=== PATIENT | female | born 1960 | race Caucasian/White ===

== ENCOUNTER 2023-01-13 09:29 | Observation (INO) | payer OTHER, SELFPAY ==
--- NOTE | ~2023-01-13 | CT_ITS ---
EXAMINATION: CT brain wo con DATE: 01/13/2023 11:36 INDICATION: Confusion TECHNIQUE: Computed tomography (CT) of the head was performed without intravenous contrast. Sagittal and coronal reconstructions were performed. The mA was adjusted according to patient size. Iterative reconstruction technique was employed. The dose-length product was 681.00 mGy-cm. COMPARISON: None FINDINGS: No acute intracranial hemorrhage, acute infarction or abnormal extra axial fluid collection. There is very mild scattered white matter hypoattenuation consistent with chronic small vessel ischemic disea se. Symmetric prominence of the sulci and subarachnoid spaces overlying the convexities consistent wi th mild age-appropriate diffuse cerebral volume loss. Ventricles are normal and symmetric. No mass/ma ss effect. The orbits, paranasal sinuses and mastoid air cells are normal. IMPRESSION: 1. Normal aging brain. No acute intracranial process. Reviewed, dictated and finalized at location A.
--- NOTE | ~2023-01-13 | XR_ITS ---
XR chest 1V portable DATE: 01/13/2023 10:17 INDICATION: Shortness of breath TECHNIQUE: Portable AP chest on 01/13/2023 at 1004 hours COMPARISON: None FINDINGS: There is mild to moderate elevation of the right diaphragm and discoid atelectasis or scarr ing at the right lung base. The lungs otherwise appear clear. No pleural effusion or pulmonary vascul ar congestion or pneumothorax is detected. There are radiopaque sutures of the left lung. Normal heart size. No hilar or mediastinal enlargement. IMPRESSION: Postoperative change of left lung Mild to moderate right diaphragmatic elevation and discoid atelectasis or scarring at the right lung base Reviewed, dictated and finalized at location L. IMPRESSION: Postoperative change of left lung Mild to moderate right diaphragmatic elevation and discoid atelectasis or scarr ing at the right lung base
--- NOTE | ~2023-01-13 | US_ITS ---
EXAMINATION: US renal BI DATE: 01/14/2023 09:31 INDICATION: Renal failure TECHNIQUE: Multiple ultrasound grayscale images of the kidneys were obtained. COMPARISON: None. FINDINGS: The right kidney measures 9.8 x 4.2 x 4.2 cm. The left kidney measures 13.0 x 4.4 x 5.0 cm. The kidne ys demonstrate normal echogenicity. There is twinkle artifact arising from a calyx at the lower pole of the left kidney suggesting the presence of a small renal stone. There is no hydronephrosis in eith er kidney. The bladder is normal. IMPRESSION: 1. Focus of twinkle artifact at a lower pole calyx of the left kidney suggesting the presence of a r enal stone. Otherwise normal kidneys without hydronephrosis. Reviewed, dictated and finalized at location A. IMPRESSION: 1. Focus of twinkle artifact at a lower pole calyx of the left kidney suggesti ng the presence of a renal stone. Otherwise normal kidneys without hydronephros is.
[2023-01-13 09:40] VITALS: BP 126/70; PULSE 86; RESP 18; TEMP 36.3; O2SAT 99
--- NOTE | 2023-01-13 09:49 | ECG_ITS ---
Measurements Intervals [place] Rate: 82 P: 29 CT: 155 QRS: 13 QRSD: 83 T: 49 QT: 378 QTc: 443 Interpretive Statements SINUS RHYTHM BORDERLINE R WAVE PROGRESSION, ANTERIOR LEADS BORDERLINE ST-T WAVE ABNORMALITY- DIFFUSE LEADS BASELINE ARTIFACT- I, II, III, AVR, AVL, AVF, V1-V6 BORDERLINE ECG NO PREVIOUS ECG AVAILABLE FOR COMPARISON Electronically Signed On 01-13-2023 12:08:55 CDT by Vincent Maurice D.O.
[2023-01-13 10:54] VITALS: BP 123/63; PULSE 80; PULSE 89; RESP 16; O2SAT 100
[2023-01-13 10:59] LABS: Basophils Absolute Auto 0.1 K/mm3 (0.0-0.1); Basophils Percent Auto 0.7 % (0.2-1.2); Eosinophils Absolute Auto 0.3 K/mm3 (0-0.3); Hematocrit 47.2 % (37.0-47.0); Hemoglobin 14.1 g/dL (12.0-15.0); Immature Granulocyte Absolute 0.06 K/mm3 (0.00-0.031); Immature Granulocyte Percent A 0.5 % (0-0.5); Immature Platelet Fraction Pct 11.6 % (0.9-11.2); Mean Corpuscular HGB Conc 29.9 g/dl (32-36); Mean Corpuscular Hemoglobin 25.3 pg (26-34); Mean Corpuscular Volume 84.7 fl (80-100); Mean Platelet Volume 12.1 fl (7.4-10.4); Monocytes Absolute Auto 1.1 K/mm3 (0.1-0.6); Monocytes Percent Auto 8.1 % (2.6-8.5); Neutrophils Absolute Auto 9.2 K/mm3 (1.3-6.7); Neutrophils Percent Auto 69.7 % (45.5-73.1); Platelet Count Result 301 k/mm3 (150-375); Red Blood Count 5.57 M/mm3 (4.2-5.4); Red Cell Distribution Width 21.2 % (11.5-14.5); White Blood Count 13.2 K/mm3 (4.5-10.0)
--- NOTE | 2023-01-13 11:01 | ED.GENADULT ---
HPI - General Adult General Chief complaint: Altered Mental Status Stated complaint: ams Time Seen by Provider: 01/13/23 09:46 History of Present Illness HPI narrative: Angela Peterson is a 62 y/o female who presents from a NH. She states she was sent here because the staff could not get her to wake up this morning. Per report by the time EMS arrived pt was able to wake up. Patient reports that she has felt well, she feels back to her normal self at this time but does feel a little tired. She denies any recent fever/chills/chest pain/shortness of breath/ abdominal pain. She states that she has been eating and drinking well no nausea/vomiting. Denies changes with urination or bowels. Related Data Home Medications Medication Instructions Recorded Confirmed bisacodyl 10 mg rectal suppository 10 mg RECTAL DAILY PRN Constipation 01/13/23 01/13/23 ergocalciferol (vitamin D2) 1,250 50,000 unit PO WEEKLY 01/13/23 01/13/23 mcg (50,000 unit) capsule fluticasone propionate 50 1 spray intranasal DAILY 01/13/23 01/13/23 mcg/actuation nasal spray,suspension hydroxyzine HCl 10 mg tablet 10 mg PO BID 01/13/23 01/13/23 magnesium citrate 300 ml PO DAILY PRN Constipation 01/13/23 01/13/23 magnesium hydroxide 400 mg/5 mL 30 ml PO HS PRN Constipation 01/13/23 01/13/23 oral suspension (Milk of Magnesia) melatonin 3 mg tablet 3 mg PO HS 01/13/23 01/13/23 mirtazapine 15 mg tablet 15 mg PO BID 01/13/23 01/13/23 multivit with minerals-iron 18 1 tablet PO DAILY 01/13/23 01/13/23 mg-folic ac 400 mcg-vit K 25 mcg tablet (Adults Multivitamin) naloxone 4 mg/actuation nasal spray 4 mg intranasal Q5M PRN Opioid 01/13/23 01/13/23 Overdose olanzapine 10 mg tablet 10 mg PO DAILY 01/13/23 01/13/23 ondansetron HCl 8 mg tablet 8 mg PO Q8H PRN Nausea 01/13/23 01/13/23 oxybutynin chloride 5 mg 5 mg PO DAILY 01/13/23 01/13/23 tablet,extended release 24 hr pregabalin 150 mg capsule (Lyrica) 150 mg PO TID 01/13/23 01/13/23 sennosides 8.6 mg-docusate sodium 2 tab-cap PO Q24H PRN Constipation 01/13/23 01/13/23 50 mg tablet (Senna with Docusate Sodium) sodium chloride 0.65 % nasal spray 2 spray intranasal Q12H PRN Nasal 01/13/23 01/13/23 aerosol (Saline Mist) Congestion sodium phosphates 19 gram-7 118 ml RECTAL DAILY PRN 01/13/23 01/13/23 gram/118 mL enema (Fleet Enema) Constipation sulfamethoxazole 800 1 tablet PO Q12H 01/13/23 01/13/23 mg-trimethoprim 160 mg tablet (Bactrim DS) topiramate 50 mg capsule 50 mg PO Q24H PRN Migraines 01/13/23 01/13/23 sprinkle,extended release 24 hr tramadol 50 mg tablet 50 mg PO QID 01/13/23 01/13/23 Allergies Allergy/AdvReac Type Severity Reaction Status Date / Time sumatriptan Allergy Unknown Verified 01/13/23 15:55 peach AdvReac Anaphylaxis Verified 01/13/23 15:55 Review of Systems Review of Systems: CONSTITUTIONAL: Denies fever, chills, or sweats. EYES: Denies visual changes, redness, or discharge. ENT: Denies rhinorrhea, congestion, sore throat, or otalgia. CARDIOVASCULAR: Denies chest pain, palpitations, or edema. RESPIRATORY: Denies cough or dyspnea. GASTROINTESTINAL: Denies abdominal pain, nausea, vomiting, or diarrhea. GENITOURINARY: Denies dysuria or hematuria. SKIN: Denies rash or itching. MUSCULOSKELETAL: Denies back pain, joint pain, or myalgia. NEUROLOGIC: Denies headache, numbness, dizziness, or weakness. Reports staff could not wake her up this AM but now feels her normal self. PSYCHIATRIC: Denies anxiety or depression. [facility] Past Medical History Medical History (Updated 01/13/23 @ 19:42 by Nini Razo APRN) Deep venous thrombosis Depression with anxiety Family History Family History (Updated 01/13/23 @ 16:11 by Annamaria Dash RN) Mother Diabetes mellitus Heart attack Social History Social History (Updated 01/13/23 @ 15:52 by Rose Munoz PA-C) Social History: Surrogate medical decision maker: Code status: Full code. Smoking packs per day: 0.5
--- NOTE | 2023-01-13 11:05 | PC.NURSE ---
Report given to GRAEME Up
[2023-01-13 11:06] LABS: Prothrombin Time 13.4 Seconds (11.1-14.7)
[2023-01-13 11:08] LABS: Lactic Acid Reflex 1.8 mmol/L (0.7-2.0)
[2023-01-13 11:09] LABS: Alanine Aminotransferase 35 U/L (6-35); Albumin Level 4.8 g/dL (3.5-5.1); Alkaline Phosphatase 155 U/L (38-126); Anion Gap 13 mmol/L (8-16); Aspartate Amino Transferase 29 U/L (14-36); Bilirubin,Total 0.5 mg/dL (0.2-1.3); Blood Urea Nitrogen 20 mg/dL (7-17); Calcium 9.8 mg/dL (8.4-10.2); Carbon Dioxide 24 mmol/L (22-30); Chloride 107 mmol/L (98-107); Estimated CRCL calculation 39 ml/min; Estimated Glomerular Filt Rate 38; Glucose 111 mg/dL (65-110); Potassium 3.5 mmol/L (3.4-5.0); Sodium 144 mmol/L (137-145)
[2023-01-13 11:13] LABS: Glucose Point of Care 111 mg/dl (65-105)
[2023-01-13 11:15] LABS: Anisocytosis 1+ (NORMAL); Large Platelets Present; Platelet Estimate Adequate (Adequate); Schistocytes None Seen (NORMAL)
[2023-01-13 11:20] LABS: Troponin I < 0.012 ng/mL (0.000-0.034)
[2023-01-13 11:53] LABS: Add Urine Microscopic? YES; Appearance Urine Turbid (Clear); Bacteria Urine 4+ /hpf; Bilirubin Urine Negative (Negative); Blood Urine Trace (Negative); Color Urine Dark Yellow (Yellow); Glucose Urine UA Negative (Negative); Ketones Urine Negative (Negative); Leukocyte Esterase Ur 2+ LEU/UL (Negative); Need Manual Microscopic Reviewed; Nitrate Urine Positive (Negative); Protein Urine 2+ mg/dL (Negative); RBC Urine 21-50 /hpf (0-2); Squamous Epithelial Cell Urine Few /hpf (Few); Triple Phosphate Crystal Urine Present /hpf; WBC Urine 21-50 /hpf
[2023-01-13] MEDS: SODIUM CHLORIDE 0.9% IV 1,000 ML 999 ML IV CONT (12:35)
--- NOTE | 2023-01-13 13:20 | PC.NURSE ---
report called to alex at [facility]
--- NOTE | 2023-01-13 14:39 | PC.NURSE ---
NH aware of patient's admit
[2023-01-13 15:17] VITALS: BP 136/56; PULSE 76; RESP 15; O2SAT 100
[2023-01-13 15:27] VITALS: PULSE 98; RESP 18; O2SAT 100
--- NOTE | 2023-01-13 15:39 | PC.NURSE ---
This patient, Angela Peterson, was admitted to [facility] Surg Room 317-02 on 01/13/23 @ 4711. Patient/family oriented to hospital policies and general routines including ID bracelet, bed and alarms, visiting hours, pain management, procedures, bathroom and other care routines, personal items, smoking policy, room service/diet, and visiting hours. Information on how to activate the Rapid Response Team has been discussed. Patient/Family are encouraged to report perceived risks to care and to ask questions if they do not understand what they are told or what they should do.
--- NOTE | 2023-01-13 15:47 | PM.IMHP ---
H&P: HPI History of Present Illness Date/Time: 01/13/23 15:15 Chief Complaint: Difficulties waking up. Narrative: This is a 62-year-old female who presented to the emergency department from a local nursing facility for evaluation after staff members at her facility had difficulties waking her up this morning. She is alert and oriented at the time my evaluation and provides the following history. It is my understanding that she would only respond to noxious stimuli and emergency services were contacted. She was awake by the time EMS arrived without reports of focal deficits or vital sign abnormalities. With further questioning she reports being started on Bactrim several days ago as she had symptoms of UTI including dysuria and incontinence. Despite taking the antibiotics her symptoms have continued. She has no other complaints and specifically denies fever, chills, sweats, nausea, vomiting, and diarrhea. Her vital signs were stable on arrival to the ED. Labs were significant for a WBC count of 13.2, BUN 20, creatinine 1.40 lactic acid 1.8. Urine was nitrate and leukocyte esterase positive with 21 to 50 wbc's and 4+ bacteria. Brain CT showed no acute findings. She was started on Rocephin she is being admitted in this setting for further treatment. Review of Systems Review of Systems: Twelve systems were reviewed. No fever, chills, or sweats. No cold or flu symptoms. She is able to ambulate with a walker with assistance. She has been in residential for a couple of years because of this. According to the patient she has never been given any explanations as to why her legs are so weak. She denies saddle anesthesia, urinary retention, and bowel incontinence. Except as documented, all other systems were reviewed and are negative. [facility] Past Medical History Medical History (Updated 01/13/23 @ 21:59 by Rose Munoz PA-C) Deep venous thrombosis Depression with anxiety Lung cancer Status post partial left lobectomy, completely resected requiring no further treatment. Peripheral neuropathy Surgical History Surgical History (Updated 01/13/23 @ 21:53 by Rose Munoz PA-C) History of cholecystectomy History of hysterectomy History of lobectomy of lung Left partial lobectomy for lung cancer. Family History Family History (Updated 01/13/23 @ 16:11 by Annamaria Dash RN) Mother Diabetes mellitus Heart attack Social History Social History (Updated 01/13/23 @ 21:55 by Rose Munoz PA-C) Social History: Surrogate medical decision maker: Taya Harper, sister. Code status: Do not resuscitate. Smoking packs per day: 0.5 Smoking cigarettes per day: 10.0 Years smoked: 37 Smoking pack-years: 18.50 Smoking status: Current every day smoker Tobacco type: cigarettes Alcohol intake: never Substance use: never Lack of Transportation: No Lack of Food: Never True Current Housing: I Have Housing Concerned About Future Housing: No Difficulty Paying Gas/Electric Bills: No Difficulty Paying for Meds: No Currently Unemployed: No Education: High School Diploma/GED Difficulty w/ Childcare or Family Care: No Additional living arrangements comments: Resident of [facility]. Spiritual care concerns: No Meds Home Medications and Allergies Home Medications Medication Instructions Recorded Confirmed Type bisacodyl 10 mg rectal suppository 10 mg RECTAL DAILY PRN Constipation 01/13/23 01/13/23 History ergocalciferol (vitamin D2) 1,250 50,000 unit PO WEEKLY 01/13/23 01/13/23 History mcg (50,000 unit) capsule fluticasone propionate 50 1 spray intranasal DAILY 01/13/23 01/13/23 History mcg/actuation nasal spray,suspension hydroxyzine HCl 10 mg tablet 10 mg PO BID 01/13/23 01/13/23 History magnesium citrate 300 ml PO DAILY PRN Constipation 01/13/23 01/13/23 History magnesium hydroxide 400 mg/5 mL 30 ml PO HS PRN Constipation 01/13/23 01/13/23 History oral suspension (Milk o
[2023-01-13 16:00] VITALS: BP 133/63; PULSE 90; RESP 18; TEMP 35.6; O2SAT 100
[2023-01-13 16:12] VITALS: BMI 31.4
[2023-01-13 21:03] VITALS: BP 111/51; PULSE 97; RESP 18; TEMP 36.7; O2SAT 97
[2023-01-14 06:00] VITALS: BP 120/69; PULSE 81; RESP 18; TEMP 35.9; O2SAT 100
[2023-01-14 06:07] LABS: Hematocrit 41.6 % (37.0-47.0); Hemoglobin 12.6 g/dL (12.0-15.0); Mean Corpuscular HGB Conc 30.3 g/dl (32-36); Mean Corpuscular Hemoglobin 25.2 pg (26-34); Mean Corpuscular Volume 83.2 fl (80-100); Mean Platelet Volume 11.6 fl (7.4-10.4); Platelet Count Result 291 k/mm3 (150-375); Red Cell Distribution Width 20.5 % (11.5-14.5); White Blood Count 8.6 K/mm3 (4.5-10.0)
[2023-01-14 06:35] LABS: Anion Gap 11 mmol/L (8-16); Blood Urea Nitrogen 18 mg/dL (7-17); Calcium 9.1 mg/dL (8.4-10.2); Carbon Dioxide 21 mmol/L (22-30); Chloride 109 mmol/L (98-107); Estimated CRCL calculation 47 ml/min; Estimated Glomerular Filt Rate 45; Glucose 154 mg/dL (65-110); Magnesium 2.1 mg/dL (1.6-2.3); Potassium 3.9 mmol/L (3.4-5.0); Sodium 141 mmol/L (137-145)
[2023-01-14 08:07] VITALS: O2SAT 98
--- NOTE | 2023-01-14 08:09 | PM.IMPN ---
Progress Note: A&P Assessment and Plan (1) Urinary tract infection: Qualifiers: Hematuria presence: with hematuria Urinary tract infection type: acute cystitis Qualified Code(s): N30.01 - Acute cystitis with hematuria Code(s): N39.0 - Urinary tract infection, site not specified Status: Acute Assessment and Plan: Rocephin started 01/13 Follow-up urine culture (2) Renal failure: Code(s): N19 - Unspecified kidney failure Status: Acute Assessment and Plan: Improving, monitor (3) Generalized weakness: Code(s): R53.1 - Weakness Status: Acute Assessment and Plan: PT/OT (4) Depression with anxiety: Code(s): F41.8 - Other specified anxiety disorders Status: Acute Plan Lower extremity paresthesias: Likely secondary to neuropathy, check B12 and TSH Heartburn: Tums and PPI daily DVT prophylaxis with SCDs GI prophylaxis not indicated Code status full code Subjective Date/time seen: 01/14/23 08:09 Interval history: 52-year-old female from a nursing facility with a past medical history significant for lung cancer status post lobectomy as well as depression and anxiety is presenting with somnolence, altered mental status, difficulty with ambulation and currently being treated for possible UTI. No overnight events noted. No chest pain or shortness of breath. No nausea, vomiting or diarrhea. No fevers or chills. She is complaining of lower extremity numbness and tingling as well as heartburn. She states the lower extremity symptoms have been ongoing for months. Review of Systems Review of Systems: 12 point review of systems was assessed and was negative except as noted in the HPI Exam Narrative: General: No acute distress, alert and oriented per baseline HEENT: Atraumatic, normocephalic, mucous membranes moist CV: Regular rate and rhythm, S1, S2 Lungs: Clear to auscultation bilaterally, no rales or crackles noted, no wheezes, good air entry Abdomen: Soft, nontender, nondistended Extremities: Normal to inspection Skin: No rashes noted, no lesions or wounds seen Psych: Euthymic, normal affect Objective Data Vital Signs Vital Signs: Vital Signs - 24 hr 01/13/23 09:40 01/13/23 10:54 01/13/23 10:54 Temperature 97.4 F L Pulse Rate 86 89 80 Respiratory Rate 18 16 Blood Pressure 126/70 123/63 Pulse Oximetry 99 100 Oxygen Delivery 01/13/23 15:17 01/13/23 15:27 01/13/23 16:00 Temperature 96.0 F L Pulse Rate 76 98 90 Respiratory Rate 15 18 18 Blood Pressure 136/56 L 133/63 Pulse Oximetry 100 100 100 Oxygen Delivery 01/13/23 15:50 01/13/23 21:03 01/13/23 20:00 Temperature 98.0 F Pulse Rate 97 Respiratory Rate 18 Blood Pressure 111/51 L Pulse Oximetry 97 Oxygen Delivery Room Air Room Air 01/14/23 06:00 01/14/23 08:07 Temperature 96.6 F L Pulse Rate 81 Respiratory Rate 18 Blood Pressure 120/69 Pulse Oximetry 100 98 Oxygen Delivery Room Air Intake/Output Intake/Output: Intake & Output 01/11/23 01/12/23 01/13/23 01/14/23 23:59 23:59 23:59 23:59 Intake Total 1530 400 Output Total 100 Balance 1430 400 Meds/Results Medications: Active Medications Generic Name Dose Route Start Last Admin Trade Name Freq PRN Reason Stop Dose Admin Acetaminophen 650 mg 01/13/23 22:00 Acetaminophen 325 Mg Tablet PO Q6H PRN Mild Pain (1-3) or Fever Bisacodyl 10 mg 01/13/23 22:11 Bisacodyl 10 Mg Suppository RECTAL DAILY PRN Constipation Enoxaparin Sodium 40 mg 01/14/23 09:00 Enoxaparin 40 Mg/0.4 Ml Syringe SUB-Q DAILY SHIV Fluticasone Propionate 1 spray 01/14/23 09:00 Fluticasone Propionate 0.05% Na Spr 16 Gm Btl (*Bkc) NASAL DAILY SHIV Hydroxyzine HCl 10 mg 01/14/23 09:00 Hydroxyzine Hcl 10 Mg Tablet PO BID SHIV Ceftriaxone Sodium 1 gm in 50 mls @ 100 mls/hr 01/14/23 12:00
[2023-01-14] MEDS: ENOXAPARIN 40 MG/0.4 ML SYRINGE SUB-Q (08:53)
[2023-01-14] MEDS: MULTIVITAMINS /C LUTEIN (CENTRUM SILVER) TABLET *BKC 1 TAB PO (08:54)
[2023-01-14] MEDS: hydrOXYzine HCL 10 MG TABLET PO ×2 (08:55→16:36)
[2023-01-14] MEDS: MIRTAZAPINE 15 MG TABLET PO ×2 (08:55→16:35)
[2023-01-14] MEDS: OLANZapine 5 MG TABLET 10 MG PO (08:55)
[2023-01-14] MEDS: PREGABALIN (*CRX) 75 MG CAPSULE 150 MG PO ×3 (08:56→16:35)
[2023-01-14] MEDS: traMADol HCL (*CRX) 50 MG TABLET PO ×4 (08:56→20:37)
[2023-01-14] MEDS: oxyBUTYnin CHLORIDE XL 5 MG TAB.ER.24 PO (08:58)
--- NOTE | 2023-01-14 09:05 | PCOTNOTE ---
Attempted to see pt. for occupational therapy evaluation. Pt. currently away from room for testing at this time. Nursing aware
--- NOTE | 2023-01-14 10:22 | PCPTNOTE ---
Attempted PT evaluation. However, pt with OT at this time. Will follow.
[2023-01-14 13:47] VITALS: BP 121/67; PULSE 98; RESP 16; TEMP 35.7; O2SAT 100
--- NOTE | 2023-01-14 15:11 | PCCCNOTE ---
On 01/14/23, the student, [Bette Joaquin], provided care and completed [facility] documentation on this patient. I have reviewed the student's documentation and agree with the findings.
[2023-01-14] MEDS: CALCIUM CARBONATE (TUMS) 500 MG (200 MG ELEMENTAL) PO ×2 (15:41→17:53)
--- NOTE | 2023-01-14 16:46 | PCPTNOTE ---
On 01/14/23, the student, AMARJIT Yu, provided care and completed [facility] documentation on this patient. I have reviewed the student's documentation and agree with the findings.
[2023-01-14] MEDS: MELATONIN 3 MG TABLET PO (20:37)
[2023-01-14 21:29] VITALS: BP 116/51; PULSE 89; RESP 13; TEMP 36.9; O2SAT 97
[2023-01-15 06:00] VITALS: BP 125/48; PULSE 76; RESP 13; TEMP 36.3; O2SAT 98
[2023-01-15] MEDS: CALCIUM CARBONATE (TUMS) 500 MG (200 MG ELEMENTAL) PO (06:18)
[2023-01-15 07:23] LABS: Basophils Absolute Auto 0.1 K/mm3 (0.0-0.1); Basophils Percent Auto 1.1 % (0.2-1.2); Eosinophils Absolute Auto 0.2 K/mm3 (0-0.3); Eosinophils Percent Auto 2.8 % (0-4.4); Hematocrit 40.6 % (37.0-47.0); Hemoglobin 12.1 g/dL (12.0-15.0); Immature Granulocyte Absolute 0.03 K/mm3 (0.00-0.031); Immature Granulocyte Percent A 0.4 % (0-0.5); Lymphocytes Absolute Auto 2.41 K/mm3 (0.9-3.2); Lymphocytes Percent Auto 33.2 % (18.3-44.2); Mean Corpuscular HGB Conc 29.8 g/dl (32-36); Mean Corpuscular Hemoglobin 24.9 pg (26-34); Mean Corpuscular Volume 83.7 fl (80-100); Mean Platelet Volume 12.4 fl (7.4-10.4); Monocytes Absolute Auto 0.5 K/mm3 (0.1-0.6); Monocytes Percent Auto 7.4 % (2.6-8.5); Neutrophils Percent Auto 55.1 % (45.5-73.1); Platelet Count Result 266 k/mm3 (150-375); Red Blood Count 4.85 M/mm3 (4.2-5.4); Red Cell Distribution Width 20.1 % (11.5-14.5); White Blood Count 7.3 K/mm3 (4.5-10.0)
[2023-01-15 07:45] LABS: Alanine Aminotransferase 29 U/L (6-35); Albumin Level 3.6 g/dL (3.5-5.1); Alkaline Phosphatase 108 U/L (38-126); Anion Gap 7 mmol/L (8-16); Aspartate Amino Transferase 28 U/L (14-36); Bilirubin,Total 0.4 mg/dL (0.2-1.3); Blood Urea Nitrogen 18 mg/dL (7-17); Calcium 8.8 mg/dL (8.4-10.2); Carbon Dioxide 24 mmol/L (22-30); Chloride 108 mmol/L (98-107); Estimated CRCL calculation 48 ml/min; Estimated Glomerular Filt Rate 45; Glucose 107 mg/dL (65-110); Potassium 3.9 mmol/L (3.4-5.0); Sodium 139 mmol/L (137-145)
[2023-01-15 07:47] LABS: Platelet Estimate Adequate (Adequate)
[2023-01-15 07:48] LABS: Anisocytosis 2+ (NORMAL); Hypochromasia 1+ (NORMAL); Ovalocytes 1+ (NORMAL); Schistocytes None Seen (NORMAL)
[2023-01-15 08:53] LABS: Folic Acid 6.6 ng/mL (2.76->20)
[2023-01-15] MEDS: ENOXAPARIN 40 MG/0.4 ML SYRINGE SUB-Q (09:17)
[2023-01-15] MEDS: traMADol HCL (*CRX) 50 MG TABLET PO ×2 (09:20→12:20)
[2023-01-15] MEDS: MIRTAZAPINE 15 MG TABLET PO (09:20)
[2023-01-15] MEDS: PREGABALIN (*CRX) 75 MG CAPSULE 150 MG PO ×2 (09:20→12:20)
[2023-01-15] MEDS: hydrOXYzine HCL 10 MG TABLET PO (09:20)
[2023-01-15] MEDS: MULTIVITAMINS /C LUTEIN (CENTRUM SILVER) TABLET *BKC 1 TAB PO (09:21)
[2023-01-15] MEDS: oxyBUTYnin CHLORIDE XL 5 MG TAB.ER.24 PO (09:21)
[2023-01-15] MEDS: OLANZapine 5 MG TABLET 10 MG PO (09:21)
[2023-01-15] MEDS: CYANOCOBALAMIN INJ 1,000 MCG/ML VIAL 1000 MCG IM (09:26)
--- NOTE | 2023-01-15 10:21 | PM.DS ---
DS: Admitting Diagnosis Discharge Date 01/15/23 Admitting Diagnosis weakness DS: Discharge Diagnosis Discharge Diagnosis (1) Urinary tract infection: Qualifiers: Hematuria presence: with hematuria Urinary tract infection type: acute cystitis Qualified Code(s): N30.01 - Acute cystitis with hematuria Code(s): N39.0 - Urinary tract infection, site not specified Status: Acute Assessment and Plan: Rocephin started 01/13 Follow-up urine culture (2) Renal failure: Code(s): N19 - Unspecified kidney failure Status: Acute Assessment and Plan: Improving, monitor (3) Generalized weakness: Code(s): R53.1 - Weakness Status: Acute Assessment and Plan: PT/OT (4) Depression with anxiety: Code(s): F41.8 - Other specified anxiety disorders Status: Acute Plan Lower extremity paresthesias: Likely secondary to neuropathy, check B12 and TSH Heartburn: Tums and PPI daily DVT prophylaxis with SCDs GI prophylaxis not indicated Code status full code DS: Summary Hospital Course Hospital Course: 52-year-old female from a nursing facility with a past medical history significant for lung cancer status post lobectomy as well as depression and anxiety is presenting with somnolence, altered mental status, difficulty with ambulation and currently being treated for possible UTI. All symptoms resolved with antibiotic administration and fluids. Creatinine improved. Urine culture did come back positive only for mixed urogenital bola. She completed 3 days of IV Rocephin. She was discharged in stable condition back to her nursing facility. Of note, she was complaining of chronic lower extremity paresthesias. B12 was found to be quite low and she was given a B12 injection prior to discharge. The should be maintained weekly on outpatient basis until her B12 normalizes, then it can be given monthly. Please see above and med rec for details. Time Spent with Patient Time attestation: Total time spent providing and/or coordinating discharge services: Exam Narrative: General: No acute distress, alert and oriented per baseline HEENT: Atraumatic, normocephalic, mucous membranes moist CV: Regular rate and rhythm, S1, S2 Lungs: Clear to auscultation bilaterally, no rales or crackles noted, no wheezes, good air entry Abdomen: Soft, nontender, nondistended Extremities: Normal to inspection Skin: No rashes noted, no lesions or wounds seen Psych: Euthymic, normal affect DS: Data Data Completed and Pending Labs on day of discharge: Labs from last 24 hours 01/15/23 06:37 WBC 7.3 RBC 4.85 Hgb 12.1 Hct 40.6 MCV 83.7 MCH 24.9 L MCHC 29.8 L RDW 20.1 H Plt Count 266 MPV 12.4 H Immature Gran % (Auto) 0.4 Neut % (Auto) 55.1 Lymph % (Auto) 33.2 [place] % (Auto) 7.4 Eos % (Auto) 2.8 Baso % (Auto) 1.1 Lymph # (Auto) 2.41 [place] # (Auto) 0.5 Eos # (Auto) 0.2 Baso # (Auto) 0.1 Abs Immat Gran (auto) 0.03 Absolute Neuts (auto) 4.0 Absolute Nucleated RBC 0.0 Nucleated RBC % 0.0 Platelet Estimate Adequate Hypochromasia 1+ Anisocytosis 2+ Ovalocytes 1+ Schistocytes None seen Sodium 139 Potassium 3.9 Chloride 108 H Carbon Dioxide 24 Anion Gap 7 L BUN 18 H Creatinine 1.20 H Estim Creat Clear Calc 48 Estimated GFR 45 L Glucose 107 Calcium 8.8 Total Bilirubin 0.4 AST 28 ALT 29 Alkaline Phosphatase 108 Total Protein 6.0 L Albumin 3.6 Vitamin B12 218.0 L Folate 6.6 TSH 1.210 Discharge Plan Discharge Attending physician on discharge: Loretta Ray Discharging Clinician: Loretta Ray Patient Disposition: SNF Activity: as tolerated Diet: as tolerated Patient Instructions: Urinary Tract Infection in Women (DC), Altered Mental Status (GEN) Stand Alone Forms: General Discharge Information Follow-up/Referrals: Magdalene,MD Aj [Primary Care Prov
[2023-01-15 12:20] LABS: SARS-CoV-2 RNA PCR Negative (Negative)
[2023-01-15 13:45] VITALS: BP 131/66; PULSE 90; RESP 16; TEMP 36.6; O2SAT 100
== END 2023-01-15 16:10 ==
LOC: ANHED 11:59 → ANH3MEDSUR 15:40
PROVIDERS: Family Medicine; Physician Assistant; Admitting Provider Hospitalist; Emergency Provider Nurse Practitioner Family; PCP Internal Medicine; Visit Provider Student in an Organized Health Care Education/Training Program
DX: N30.01 Acute cystitis with hematuria (principal); N19 Unspecified kidney failure; R53.1 Weakness; F41.8 Other specified anxiety disorders; R41.0 Disorientation, unspecified; R79.89 Other specified abnormal findings of blood chemistry; D72.829 Elevated white blood cell count, unspecified; Z20.822 Contact with and (suspected) exposure to COVID-19; R91.8 Other nonspecific abnormal finding of lung field; G62.9 Polyneuropathy, unspecified; R06.02 Shortness of breath; Z90.2 Acquired absence of lung [part of]; F17.210 Nicotine dependence, cigarettes, uncomplicated; F10.90 Alcohol use, unspecified, uncomplicated; Z79.891 Long term (current) use of opiate analgesic; Z79.899 Other long term (current) drug therapy; Z86.718 Personal history of other venous thrombosis and embolism; Z85.118 Personal history of other malignant neoplasm of bronchus and lung
CPT/HCPCS: 36415; 70450; 71045; 76775; 80048; 80053; 81001; 82607; 82746; 82948; 83605; 83735; 84443; 84484; 85025; 85027; 85055; 85610; 87086; 87088; 87635; 93005; 96365; 96372; 97161; 97165; 99285; A9270; G0378; J0696; J1650; J3420; J7030

== ENCOUNTER 2023-02-07 02:49 | Inpatient (IN) | payer OTHER, SELFPAY ==
[2023-02-07] VITALS (18 sets, daily range): BP systolic 130–153; BP diastolic 57–77; PULSE 65–97; RESP 14–24; TEMP 36.1–36.4; O2SAT 94–99; BMI 31.3
--- NOTE | ~2023-02-07 | CT_ITS ---
EXAMINATION: CT abdomen pelvis wo con DATE: 02/07/2023 05:42 INDICATION: Left flank pain. TECHNIQUE: Computed tomography (CT) of the abdomen and pelvis was performed without intravenous contr ast. Automated exposure control and iterative reconstruction technique were employed. The dose-length product was 931.92 mGy-cm. COMPARISON: None. FINDINGS: The visualized portions of the lung bases demonstrate mild atelectasis. There is a staple l ine in left lower lobe. No pleural effusion. The heart size is normal. There are coronary artery calc ifications. No pericardial effusion. There is a small sliding hiatal hernia. There is diffuse hepatic steatosis. There are changes of cholecystectomy. The liver, pancreas, and left adrenal gland are nor mal. There is a 3.6 cm mass in right adrenal gland measuring soft tissue attenuation. There are appro ximately 4 stones in right kidney measuring up to 10 mm. There are approximately 7 stones in left kid divina measuring up to 3 mm. The ureters are normal. There are no dilated loops of bowel. The appendix i s not visualized. Aortic atherosclerosis is noted. There are no pathologically enlarged lymph nodes. There is no free intraperitoneal fluid. There is a benign bone island in left ilium. There is mild thierry mbar spondylosis. There are chronic compression fractures of T12 and T8 IMPRESSION: 1. Bilateral nonobstructing kidney stones. 2. Small sliding hiatal hernia. 3. 3.6 cm right adrenal mass, which may be an adenoma or less likely malignancy. Abdomen CT without a nd with contrast is recommended. Reviewed, dictated and finalized at location E. IMPRESSION: 1. Bilateral nonobstructing kidney stones. 2. Small sliding hiatal hernia. 3. 3.6 cm right adrenal mass, which may be an adenoma or less likely malignancy . Abdomen CT without and with contrast is recommended.
--- NOTE | ~2023-02-07 | CT_ITS ---
EXAMINATION: CT brain wo con INDICATION: Confusion, transient alteration of awareness COMPARISON: 01/13/2023 TECHNIQUE: Standard unenhanced head CT. The dose-length product (DLP) was 908.00 mGy-cm. The mA was a djusted according to patient size. Iterative reconstruction technique was employed. FINDINGS: There is no acute intraparenchymal hemorrhage. No evidence of mass lesion. No evidence of a cute infarction. There is mild periventricular and subcortical hypodensity probably related to small vessel ischemic disease. There is mild prominence of the sulci and ventricles related to cerebral atr ophy. Intracranial calcified cerebral atherosclerosis is noted. There are no extra-axial collections. There is no mass effect or midline shift. The orbits and soft tissues are unremarkable. The visualiz ed sinuses and mastoid air cells are well aerated. IMPRESSION: 1. No acute intracranial abnormality. 2. Age related findings. Reviewed, dictated and finalized at location F.
--- NOTE | ~2023-02-07 | US_ITS ---
EXAMINATION: US venous doppler [facility] DATE: 02/08/2023 08:23 INDICATION: Lower limb pain. TECHNIQUE: Grayscale ultrasound images without and with compression and Doppler ultrasound images of the bilateral lower extremity veins were obtained. COMPARISON: None. FINDINGS: The visualized portions of right common femoral vein, profunda (deep) femoral vein, femoral vein, pop liteal vein, peroneal veins, posterior tibial veins, and greater saphenous vein outflow are patent. The visualized portions of left common femoral vein, profunda femoral vein, femoral vein, popliteal v ein, and greater saphenous vein outflow are patent. The calf veins are not well evaluated. IMPRESSION: 1. No deep venous thrombosis. Reviewed, dictated and finalized at location A.
[2023-02-07 06:25] LABS: Basophils Absolute Auto 0.1 K/mm3 (0.0-0.1); Basophils Percent Auto 0.6 % (0.2-1.2); Eosinophils Absolute Auto 0.1 K/mm3 (0-0.3); Eosinophils Percent Auto 1.4 % (0-4.4); Hematocrit 42.9 % (37.0-47.0); Immature Granulocyte Absolute 0.06 K/mm3 (0.00-0.031); Immature Granulocyte Percent A 0.7 % (0-0.5); Lymphocytes Absolute Auto 1.57 K/mm3 (0.9-3.2); Lymphocytes Percent Auto 18.6 % (18.3-44.2); Mean Corpuscular HGB Conc 30.3 g/dl (32-36); Mean Corpuscular Hemoglobin 25.6 pg (26-34); Mean Corpuscular Volume 84.4 fl (80-100); Mean Platelet Volume 11.9 fl (7.4-10.4); Monocytes Absolute Auto 0.5 K/mm3 (0.1-0.6); Monocytes Percent Auto 6.4 % (2.6-8.5); Neutrophils Absolute Auto 6.1 K/mm3 (1.3-6.7); Neutrophils Percent Auto 72.3 % (45.5-73.1); Platelet Count Result 265 k/mm3 (150-375); Red Blood Count 5.08 M/mm3 (4.2-5.4); Red Cell Distribution Width 19.1 % (11.5-14.5); White Blood Count 8.5 K/mm3 (4.5-10.0)
[2023-02-07 06:34] LABS: INR 0.9; Prothrombin Time 12.9 Seconds (11.1-14.7)
[2023-02-07 06:35] LABS: Partial Thromboplastin Time 27.9 SECONDS (22.3-36.8)
[2023-02-07 06:36] LABS: Alanine Aminotransferase 30 U/L (6-35); Albumin Level 4.5 g/dL (3.5-5.1); Alkaline Phosphatase 164 U/L (38-126); Anion Gap 10 mmol/L (8-16); Aspartate Amino Transferase 25 U/L (14-36); Bilirubin,Total 0.6 mg/dL (0.2-1.3); Blood Urea Nitrogen 10 mg/dL (7-17); Calcium 9.6 mg/dL (8.4-10.2); Carbon Dioxide 24 mmol/L (22-30); Chloride 106 mmol/L (98-107); Estimated CRCL calculation 47 ml/min; Estimated Glomerular Filt Rate 56; Glucose 128 mg/dL (65-110); Magnesium 2.2 mg/dL (1.6-2.3); Potassium 3.9 mmol/L (3.4-5.0); Sodium 140 mmol/L (137-145)
--- NOTE | 2023-02-07 06:39 | ED.GENADULT ---
HPI - General Adult General Chief complaint: Back Pain/Injury <David Hernadez MD - Last Filed: 02/07/23 06:41> Stated complaint: lower back pain <David Hernadez MD - Last Filed: 02/07/23 06:41> Time Seen by Provider: 02/07/23 05:17 <David Hernadez MD - Last Filed: 02/07/23 06:41> History of Present Illness HPI narrative: Patient is a 62-year-old female who presents the emergency department with chief complaint of back pain. Patient reports that she started having pain in her left flank area the patient reports the pain is worse with movement and improved with rest. Patient recently was admitted to a snf for rehab and apparently signed herself out AMA from the snf. The patient has been living with several friends and does not have a fixed location to stay at her sister is her power of real estate attorney and reports that there would like the patient back in a nursing facility. <David Hernadez MD - Last Filed: 02/07/23 06:41> Related Data Home medications: Home Medications Medication Instructions Recorded Confirmed bisacodyl 10 mg rectal suppository 10 mg RECTAL DAILY PRN Constipation 01/13/23 01/13/23 ergocalciferol (vitamin D2) 1,250 50,000 unit PO WEEKLY 01/13/23 01/13/23 mcg (50,000 unit) capsule fluticasone propionate 50 1 spray intranasal DAILY 01/13/23 01/13/23 mcg/actuation nasal spray,suspension hydroxyzine HCl 10 mg tablet 10 mg PO BID 01/13/23 01/13/23 magnesium citrate 300 ml PO DAILY PRN Constipation 01/13/23 01/13/23 magnesium hydroxide 400 mg/5 mL 30 ml PO HS PRN Constipation 01/13/23 01/13/23 oral suspension (Milk of Magnesia) melatonin 3 mg tablet 3 mg PO HS 01/13/23 01/13/23 mirtazapine 15 mg tablet 15 mg PO BID 01/13/23 01/13/23 multivit with minerals-iron 18 1 tablet PO DAILY 01/13/23 01/13/23 mg-folic ac 400 mcg-vit K 25 mcg tablet (Adults Multivitamin) olanzapine 10 mg tablet 10 mg PO DAILY 01/13/23 01/13/23 ondansetron HCl 8 mg tablet 8 mg PO Q8H PRN Nausea 01/13/23 01/13/23 oxybutynin chloride 5 mg 5 mg PO DAILY 01/13/23 01/13/23 tablet,extended release 24 hr pregabalin 150 mg capsule (Lyrica) 150 mg PO TID 01/13/23 01/13/23 sennosides 8.6 mg-docusate sodium 2 tab-cap PO Q24H PRN Constipation 01/13/23 01/13/23 50 mg tablet (Senna with Docusate Sodium) sodium chloride 0.65 % nasal spray 2 spray intranasal Q12H PRN Nasal 01/13/23 01/13/23 aerosol (Saline Mist) Congestion sodium phosphates 19 gram-7 118 ml RECTAL DAILY PRN 01/13/23 01/13/23 gram/118 mL enema (Fleet Enema) Constipation topiramate 50 mg capsule 50 mg PO Q24H PRN Migraines 01/13/23 01/13/23 sprinkle,extended release 24 hr tramadol 50 mg tablet 50 mg PO QID 01/13/23 01/13/23 <David Hernadez MD - Last Filed: 02/07/23 06:41> Allergies/adverse reactions: Allergies Allergy/AdvReac Type Severity Reaction Status Date / Time sumatriptan Allergy Unknown Verified 01/13/23 15:55 peach AdvReac Anaphylaxis Verified 01/13/23 15:55 <David Hernadez MD - Last Filed: 02/07/23 06:41> Review of Systems Review of Systems: A 10 system review of systems was completed on the patient and is negative except for what is stated in the HPI. Nursing and ancillary documentation was reviewed. <David Hernadez MD - Last Filed: 02/07/23 06:41> [facility] Past Medical History Medical History: Medical History Deep venous thrombosis Depression with anxiety Lung cancer Status post partial left lobectomy, completely resected requiring no further treatment. Peripheral neuropathy <David Hernadez MD - Last Filed: 02/07/23 06:41> Surgical History Surgical History: Surgical History History of cholecystectomy History of hysterectomy History of lobectomy of lung Left partial lobectom
[2023-02-07 06:46] LABS: Troponin I 0.017 ng/mL (0.000-0.034)
[2023-02-07 07:17] LABS: Lactic Acid Reflex 1.3 mmol/L (0.7-2.0)
--- NOTE | 2023-02-07 08:27 | PCCCNOTE ---
Called to ED for placement. Pt agreeable for placement. Janell ([phone]) for [facility] called bed is available but financials need to be done and she stated that with [employer] it could be Thursday before financials approved.
[2023-02-07 08:29] LABS: Procalcitonin 0.1 ng/mL
--- NOTE | 2023-02-07 10:32 | PCCCNOTE ---
Spoke with NANCY Taya (sister) regarding placement. Attempting placement; PORyley stated that nobody in family willing to take in pt due to care needs.
[2023-02-07 10:53] LABS: Amorphous Sediment Urine Present; Appearance Urine Cloudy (Clear); Bacteria Urine 4+ /hpf; Bilirubin Urine Negative (Negative); Blood Urine Negative (Negative); Color Urine Yellow (Yellow); Glucose Urine UA Negative (Negative); Ketones Urine 1+ mg/dL (Negative); Leukocyte Esterase Ur 2+ LEU/UL (Negative); Nitrate Urine Positive (Negative); Non Pathogenic Casts 0-2; Protein Urine Negative (Negative); RBC Urine 0-2 /hpf (0-2); Specific Grav Ur 1.012 (1.001-1.035); Squamous Epithelial Cell Urine None seen /hpf (Few); Urobilinogen Urine 0.2 mg/dL (<2.0)
[2023-02-07 10:54] LABS: Add Urine Microscopic? YES
--- NOTE | 2023-02-07 13:25 | PM.IMHP ---
H&P: HPI History of Present Illness Date/Time: 02/07/23 13:25 Chief Complaint: Back pain Narrative: This is a 62-year-old female patient who came to the emergency room with complaint back pain. The patient has chronic back pain and is typically on medication for this. It is unclear if the patient has been taking her routine medication. The patient has been in at least 2 rehab facilities including [facility]. The patient stated that she does not have a home at this time and that she has been staying with friends. Her sister is listed as a durable power family law attorney and the patient stated she would still like her sister to be the durable power family law attorney. The nurse attempted to call the sister for information about her medications and the sister is not aware of the medications the patient is on. The patient is not aware of what medication she is on either. I had found an old list in the system and reviewed this with the patient and she stated that she is not taking half of those medications anymore. The patient previously has been another Prison in apparently has signed herself out against medical advice. The patient was having difficulty answering my questions and was very tearful. The patient is reportedly homeless at this time. She is not able to take care of herself and the power family law attorney is not willing to take the patient home at this time. Urine is cloudy with 1+ ketones and positive nitrates and 2+ leukocyte esterase and WBCs 11-20 with urine bacteria 4+. Abdominal pelvis CT was read as the following1. Bilateral nonobstructing kidney stones. 2. Small sliding hiatal hernia. 3. 3.6 cm right adrenal mass, which may be an adenoma or less likely malignancy. Abdomen CT without and with contrast is recommended. The patient was started on Rocephin and given Tylenol in the emergency room. The patient is being admitted to inpatient status on the date of service of 02/07/2023. Review of Systems Review of Systems: All systems reviewed & are unremarkable except as noted in HPI and below Constitutional: Constitutional: Reports as per HPI and Reports no additional constitutional complaints Eyes: Eyes: Reports as per HPI and Reports no additional eye complaints ENT: Reports system reviewed and no additional complaints, except as documented and Reports Normal hearing present Cardiovascular: Cardiovascular: Reports no additional cardiovascular complaints Respiratory: Respiratory: Reports no additional respiratory complaints and Reports no additional respiratory complaints Gastrointestinal: Gastrointestinal: Reports as per HPI and Reports no additional gastrointestinal complaints Musculoskeletal: Musculoskeletal: Reports no additional musculoskeletal complaints Integumentary/Breasts: Skin/Breast: Reports system reviewed and no additional complaints, except as docu and Reports as per HPI Neurologic: Reports system reviewed and no additional complaints, except as documented, Reports as per HPI and Reports Normal hearing present Psychiatric: Psychiatric: Reports no additional psychiatric complaints and Reports as per HPI Endocrine: Endocrine: Reports no additional endocrine complaints Hematologic/Lymphatic: Hematologic/Lymphatic: Reports no additional hematologic/lymphatic complaints Allergic/Immunologic: Allergic/Immunologic: Reports no additional allergic/immunologic complaints [facility] Past Medical History Medical History (Updated 02/07/23 @ 16:17 by Eva Heredia NP) Chronic lower back pain Deep venous thrombosis Depression with anxiety Kidney stone Lung cancer Status post partial left lobectomy, completely resected requiring no further treatment. Peripheral neuropathy Restless leg syndrome Tylenol overdose Surgical History Surgical History History of cholecystectomy History of hysterectomy History of lobectomy of lung Left partial lobectomy for lung cancer.
--- NOTE | 2023-02-07 13:33 | PC.NURSE ---
This patient, Angela Peterson, was admitted to 2 Medical Room 240-. Patient/family oriented to hospital policies and general routines including ID bracelet, bed and alarms, visiting hours, pain management, procedures, bathroom and other care routines, personal items, smoking policy, room service/diet, and visiting hours. Information on how to activate the Rapid Response Team has been discussed. Patient/Family are encouraged to report perceived risks to care and to ask questions if they do not understand what they are told or what they should do.
--- NOTE | 2023-02-07 14:16 | PC.NURSE ---
Unable to obtain home medications at this time. Patient unaware of home medications. POA called and does not know medications either.
[2023-02-07] MEDS: SODIUM CHLORIDE 0.9% IV 1,000 ML 100 ML IV CONT (17:16)
[2023-02-07] MEDS: traMADol HCL (*CRX) 25 MG TABLET PO (17:20)
[2023-02-08] MEDS: SODIUM CHLORIDE 0.9% IV 1,000 ML 100 ML IV CONT ×3 (03:33→23:52)
[2023-02-08 04:19] LABS: Basophils Absolute Auto 0.1 K/mm3 (0.0-0.1); Basophils Percent Auto 0.4 % (0.2-1.2); Hematocrit 40.7 % (37.0-47.0); Hemoglobin 12.6 g/dL (12.0-15.0); Immature Granulocyte Absolute 0.11 K/mm3 (0.00-0.031); Immature Granulocyte Percent A 0.8 % (0-0.5); Lymphocytes Absolute Auto 1.16 K/mm3 (0.9-3.2); Mean Corpuscular Hemoglobin 25.4 pg (26-34); Mean Corpuscular Volume 82.1 fl (80-100); Mean Platelet Volume 11.8 fl (7.4-10.4); Monocytes Absolute Auto 0.8 K/mm3 (0.1-0.6); Monocytes Percent Auto 5.6 % (2.6-8.5); Neutrophils Absolute Auto 12.4 K/mm3 (1.3-6.7); Neutrophils Percent Auto 85.2 % (45.5-73.1); Platelet Count Result 284 k/mm3 (150-375); Red Blood Count 4.96 M/mm3 (4.2-5.4); Red Cell Distribution Width 18.8 % (11.5-14.5); White Blood Count 14.6 K/mm3 (4.5-10.0)
[2023-02-08 04:31] LABS: Alanine Aminotransferase 26 U/L (6-35); Albumin Level 4.2 g/dL (3.5-5.1); Alkaline Phosphatase 143 U/L (38-126); Anion Gap 9 mmol/L (8-16); Aspartate Amino Transferase 30 U/L (14-36); Bilirubin,Total 0.6 mg/dL (0.2-1.3); Blood Urea Nitrogen 10 mg/dL (7-17); Calcium 8.8 mg/dL (8.4-10.2); Carbon Dioxide 20 mmol/L (22-30); Chloride 108 mmol/L (98-107); Estimated CRCL calculation 62 ml/min; Estimated Glomerular Filt Rate > 60; Glucose 142 mg/dL (65-110); Lactic Acid Reflex 0.9 mmol/L (0.7-2.0); Lipase 60 U/L (23-300); Potassium 3.8 mmol/L (3.4-5.0); Sodium 137 mmol/L (137-145)
[2023-02-08 05:06] VITALS: BP 126/90; PULSE 85; RESP 18; TEMP 36.8; O2SAT 93
[2023-02-08 05:43] LABS: Thyroid Stimulating Hormone Reflex 0.445 uIU/mL (0.465-4.68)
[2023-02-08] MEDS: ENOXAPARIN 40 MG/0.4 ML SYRINGE SUB-Q (08:47)
[2023-02-08] MEDS: PREGABALIN (*CRX) 75 MG CAPSULE 150 MG PO ×3 (08:47→17:03)
[2023-02-08] MEDS: hydrOXYzine HCL 10 MG TABLET PO ×2 (08:47→17:03)
[2023-02-08] MEDS: OLANZapine 5 MG TABLET 10 MG PO (08:47)
--- NOTE | 2023-02-08 09:48 | PM.IMPN ---
Progress Note: A&P Assessment and Plan (1) Urinary tract infection: Qualifiers: Hematuria presence: with hematuria Urinary tract infection type: acute cystitis Qualified Code(s): N30.01 - Acute cystitis with hematuria Code(s): N39.0 - Urinary tract infection, site not specified Status: Acute Assessment and Plan: Blood and urine cultures are pending. Continue with Rocephin. (2) Peripheral neuropathy: Code(s): G62.9 - Polyneuropathy, unspecified Status: Acute Assessment and Plan: Continue with Lyrica (3) Depression with anxiety: Code(s): F41.8 - Other specified anxiety disorders Status: Acute Assessment and Plan: The patient had been on hydroxyzine in past but we are not able to verify her home medications. (4) Homelessness unspecified: Code(s): Z59.00 - Homelessness unspecified Status: Acute Assessment and Plan: charge master coordinator has been consulted. PT OT evaluation will greatly be appreciated. (5) Kidney stone: Code(s): N20.0 - Calculus of kidney Status: Acute Assessment and Plan: Strain all urine and continue with IV fluids. Kidney functions are normal at this time. Subjective Date/time seen: 02/08/23 09:48 Interval history: Patient states she is doing okay Review of Systems Review of Systems: A 10 system review of systems was completed on the patient and is negative except for what is stated in the HPI. Exam Narrative: GENERAL: Well-appearing, well-nourished, and in no acute distress. HEAD: Normocephalic, atraumatic. EYES: PERRLA and EOMI. ENT: Nares clear, no rhinorrhea or epistaxis. Mucous membranes moist. NECK: Supple. CHEST: Clear to auscultation. No respiratory distress. HEART: Regular rate and rhythm. No murmur heard. Normal peripheral pulses. ABDOMEN: Soft, nontender, nondistended, normal active bowel sounds. EXTREMITIES: Chronic resting tremors bilateral upper extremities. No edema. SKIN: Warm, dry, no rash. NEURO: No focal deficits. Alert and oriented x3. PSYCH: Normal mood and affect. Objective Data Vital Signs Vital Signs: Vital Signs - 24 hr 02/07/23 13:05 02/07/23 10:14 02/07/23 11:24 Temperature Pulse Rate 84 82 Respiratory Rate 17 21 H Blood Pressure 152/74 H Pulse Oximetry 96 96 Oxygen Delivery 02/07/23 11:33 02/07/23 13:03 02/07/23 13:06 Temperature Pulse Rate Respiratory Rate Blood Pressure 152/74 H Pulse Oximetry 96 94 96 Oxygen Delivery 02/07/23 13:15 02/07/23 13:16 02/07/23 14:03 Temperature 97.0 F L Pulse Rate 74 65 Respiratory Rate 18 Blood Pressure 153/57 H 141/66 H Pulse Oximetry 96 96 98 Oxygen Delivery 02/07/23 14:00 02/07/23 19:17 02/07/23 20:00 Temperature 97.1 F L Pulse Rate 94 Respiratory Rate 16 Blood Pressure 142/77 H Pulse Oximetry 96 Oxygen Delivery Room Air Room Air 02/08/23 05:06 Temperature 98.2 F Pulse Rate 85 Respiratory Rate 18 Blood Pressure 126/90 Pulse Oximetry 93 Oxygen Delivery Intake/Output Intake/Output: Intake & Output 02/05/23 02/06/23 02/07/23 02/08/23 23:59 23:59 23:59 23:59 Intake Total 50 / 50 1000 / 1000 Output Total 750 / 750 Balance 50 / 50 250 / 250 Meds/Results Medications: Active Medications Generic Name Dose Route Start Last Admin Trade Name Freq PRN Reason Stop Dose Admin Acetaminophen 650 mg 02/07/23 11:49 Acetaminophen 325 Mg Tablet PO Q4H PRN Mild Pain (1-3) or Fever Enoxaparin Sodium 40 mg 02/08/23 09:00 02/08/23 08:47 Enoxaparin 40 Mg/0.4 Ml Syringe SUB-Q 40 mg DAILY SHIV Administration Hydroxyzine HCl 10 mg 02/08/23 09:00 02/08/23 08:47 Hydroxyzine Hcl 10 Mg Tablet PO 10 mg BID SHIV Administration Ceftriaxone Sodium 1 gm in 50 mls @ 100 mls/hr 02/07/23 12:00 02/07/23 13:21 Rocephin 1 Gm/Ns 50 Ml IVPB Infused Q24H SHIV Infusion Sodium Chlor
[2023-02-08 11:34] LABS: Free T4 Free Thyroxine Reflex 1.91 ng/dL (0.78-2.19)
[2023-02-08 13:55] LABS: Total Triiodothyronine (T3) 0.95 NG/ML (0.97-1.69)
[2023-02-08 14:00] VITALS: BP 101/60; PULSE 101; RESP 18; TEMP 37.2; O2SAT 95
[2023-02-08 19:45] VITALS: BP 151/71; PULSE 92; RESP 18; TEMP 37.1; O2SAT 91
[2023-02-09 04:32] VITALS: BP 126/71; PULSE 98; RESP 20; TEMP 36; O2SAT 96
[2023-02-09] MEDS: OLANZapine 5 MG TABLET 10 MG PO (08:16)
[2023-02-09] MEDS: hydrOXYzine HCL 10 MG TABLET PO (08:16)
[2023-02-09] MEDS: PREGABALIN (*CRX) 75 MG CAPSULE 150 MG PO ×2 (08:16→12:15)
[2023-02-09] MEDS: ENOXAPARIN 40 MG/0.4 ML SYRINGE SUB-Q (08:18)
--- NOTE | 2023-02-09 08:38 | PCPTNOTE ---
Spoke with current Hospitalist, Dr. Jacobson, pt is able to have bedrest orders REMOVED to participate with therapy. RN aware.
--- NOTE | 2023-02-09 10:25 | PM.IMPN ---
Progress Note: A&P Assessment and Plan (1) Urinary tract infection: Qualifiers: Hematuria presence: with hematuria Urinary tract infection type: acute cystitis Qualified Code(s): N30.01 - Acute cystitis with hematuria Code(s): N39.0 - Urinary tract infection, site not specified Status: Acute Assessment and Plan: Urine culture grew E coli, susceptibility pending. Blood cultures pending. Continue with Rocephin. (2) Peripheral neuropathy: Code(s): G62.9 - Polyneuropathy, unspecified Status: Acute Assessment and Plan: Continue with Lyrica (3) Depression with anxiety: Code(s): F41.8 - Other specified anxiety disorders Status: Acute Assessment and Plan: Continue olanzapine (4) Homelessness unspecified: Code(s): Z59.00 - Homelessness unspecified Status: Acute Assessment and Plan: treatment coordinator has been consulted. PT OT evaluation will greatly be appreciated. (5) Kidney stone: Code(s): N20.0 - Calculus of kidney Status: Acute Assessment and Plan: Patient eating and drinking well. Discontinue IV fluid. Kidney functions are normal at this time. Subjective Date/time seen: 02/09/23 10:25 Interval history: Stable. no new issues Review of Systems Review of Systems: A 10 system review of systems was completed on the patient and is negative except for what is stated in the HPI. Exam Narrative: GENERAL: Well-appearing, well-nourished, and in no acute distress. HEAD: Normocephalic, atraumatic. EYES: PERRLA and EOMI. ENT: Nares clear, no rhinorrhea or epistaxis. Mucous membranes moist. NECK: Supple. CHEST: Clear to auscultation. No respiratory distress. HEART: Regular rate and rhythm. No murmur heard. Normal peripheral pulses. ABDOMEN: Soft, nontender, nondistended, normal active bowel sounds. EXTREMITIES: Chronic resting tremors bilateral upper extremities. No edema. SKIN: Warm, dry, no rash. NEURO: No focal deficits. Alert and oriented x3. PSYCH: Normal mood and affect. Objective Data Vital Signs Vital Signs: Vital Signs - 24 hr 02/08/23 14:00 02/08/23 19:45 02/08/23 20:00 Temperature 98.9 F 98.8 F Pulse Rate 101 H 92 Respiratory Rate 18 18 Blood Pressure 101/60 151/71 H Pulse Oximetry 95 91 Oxygen Delivery Room Air 02/09/23 04:32 02/09/23 08:54 Temperature 96.8 F L Pulse Rate 98 Respiratory Rate 20 Blood Pressure 126/71 Pulse Oximetry 96 Oxygen Delivery Room Air Intake/Output Intake/Output: Intake & Output 02/06/23 02/07/23 02/08/23 02/09/23 23:59 23:59 23:59 23:59 Intake Total 50 / 50 4010 / 4010 530 / 530 Output Total 750 / 750 800 / 800 Balance 50 / 50 3260 / 3260 -270 / -270 Meds/Results Medications: Active Medications Generic Name Dose Route Start Last Admin Trade Name Freq PRN Reason Stop Dose Admin Acetaminophen 650 mg 02/07/23 11:49 Acetaminophen 325 Mg Tablet PO Q4H PRN Mild Pain (1-3) or Fever Enoxaparin Sodium 40 mg 02/08/23 09:00 02/09/23 08:18 Enoxaparin 40 Mg/0.4 Ml Syringe SUB-Q 40 mg DAILY SHIV Administration Hydroxyzine HCl 10 mg 02/08/23 09:00 02/09/23 08:16 Hydroxyzine Hcl 10 Mg Tablet PO 10 mg BID SHIV Administration Ceftriaxone Sodium 1 gm in 50 mls @ 100 mls/hr 02/07/23 12:00 02/08/23 12:57 Rocephin 1 Gm/Ns 50 Ml IVPB Infused Q24H SHIV Infusion Sodium Chloride 1,000 mls @ 100 mls/hr 02/07/23 16:20 02/08/23 23:52 Normal Saline Iv IV CONT 100 mls/hr .Q10H SHIV Administration Miconazole Nitrate 1 applic 02/09/23 09:00 Miconazole 2% Antifungal Ointment 56 Gm TOPICAL Q12HR SHIV Olanzapine 10 mg 02/08/23 09:00 02/09/23 08:16 Olanzapine 5 Mg Tablet PO 10 mg DAILY SHIV Administration Pregabalin 150 mg 02/08/23 09:00 02/09/23 08:16 Pregabalin (*Crx) 75 Mg Capsule PO 150 mg TID SHIV Administration Tolnaftate 1 applic 02/09
--- NOTE | 2023-02-09 11:27 | P.DS_ITS ---
DS: Admitting Diagnosis Discharge Date 02/09/2023 Admitting Diagnosis Back pain Homeless DS: Discharge Diagnosis Discharge Diagnosis (1) Chronic lower back pain: Code(s): M54.50 - Low back pain, unspecified; G89.29 - Other chronic pain Status: Acute (2) Kidney stone: Code(s): N20.0 - Calculus of kidney Status: Acute (3) Homelessness unspecified: Code(s): Z59.00 - Homelessness unspecified Status: Acute (4) Urinary tract infection: Qualifiers: Hematuria presence: with hematuria Urinary tract infection type: site unspecified Qualified Code(s): N39.0 - Urinary tract infection, site not specified; R31.9 - Hematuria, unspecified Code(s): N39.0 - Urinary tract infection, site not specified Status: Acute DS: Summary Hospital Course Hospital Course: This is a 62-year-old female patient who came to the emergency room with complaint back pain.? The patient has chronic back pain and is typically on medication for this.? The patient is reportedly homeless at this time.? She is not able to take care of herself and the power traffic law attorney is not willing to take t he patient home at this time.? Urine is cloudy with 1+ ketones and positive nitrates and 2+ leukocyte esterase and WBCs 11-20 with urine bacteria 4+.? Abdominal pelvis CT was read as the following1. Bilateral nonobstructing kidney stones. 2. Small sliding hiatal hernia. 3. 3.6 cm right adrenal mass, which may be an adenoma or less likely malignancy. Abdomen CT without and with contrast is recommended.? The patient was started on Rocephin and given Tylenol in the emergency room.? She is currently asymptomatic. She [facility]. Continue oral Macrobid for 3 more days for UTI Time Spent with Patient Time attestation: Total time spent providing and/or coordinating discharge services: DS: Data Data Completed and Pending Labs on day of discharge: Labs from last 24 hours 02/08/23 03:47 Free T4 1.91 Total T3 0.95 L Preliminary micro results at discharge 02/07/23 19:44 Blood Culture - Preliminary Blood 02/07/23 19:49 Blood Culture - Preliminary Blood 02/07/23 10:14 Urine Culture - Preliminary Unspecified Urine Escherichia Coli Discharge Plan Discharge Discharging Clinician: Bhanu Jacobson Anticipated Discharge Date/Time: 02/09/23 11:24 Patient Disposition: SNF Activity: no preference Diet: heart healthy Patient Instructions: How to Stop Smoking (DC) Stand Alone Forms: General Discharge Information Follow-up/Referrals: Darshan,MD Aj [Primary Care Provider] - Discharge Medications: New nitrofurantoin monohyd/m-cryst [Macrobid] 100 mg capsule 100 mg PO Q12H 3 Days Qty: 6 0RF Rx Instructions: must administer with a meal/food Continued hydroxyzine HCl 10 mg tablet 10 mg PO BID olanzapine 10 mg tablet 10 mg PO DAILY tramadol 50 mg tablet 50 mg PO QID pregabalin [Lyrica] 150 mg Capsule 150 mg PO TID Date of admission: 02/07/23 11:49 Primary Care Provider: DarshanAj Admitting Provider: David Blas Attending physician on admission: Bhanu Jacobson Condition: Stable
[2023-02-09] MEDS: TOLNAFTATE 1% POWDER 45 GM BTL 1 APPLIC TOPICAL (12:14)
[2023-02-09 13:06] LABS: SARS-CoV-2 RNA PCR Negative (Negative)
[2023-02-09 14:47] VITALS: BP 128/88; PULSE 95; RESP 16; TEMP 36.9; O2SAT 97
== END 2023-02-09 16:15 | DRG 690 ==
LOC: ANHED 11:48 → ANH2MED 12:27
PROVIDERS: Emergency Medicine; Nurse Practitioner; Admitting Provider Internal Medicine; Emergency Provider Emergency Medicine; PCP Internal Medicine; Visit Provider Hospitalist
DX: N39.0 Urinary tract infection, site not specified (principal); B96.20 Unspecified Escherichia coli [E. coli] as the cause of diseases classified elsewhere; N20.0 Calculus of kidney; G62.9 Polyneuropathy, unspecified; M54.50 Low back pain, unspecified; G89.29 Other chronic pain; F41.8 Other specified anxiety disorders; G25.81 Restless legs syndrome; F17.210 Nicotine dependence, cigarettes, uncomplicated; Z20.822 Contact with and (suspected) exposure to COVID-19; Z59.00 Homelessness unspecified; Z86.718 Personal history of other venous thrombosis and embolism; Z85.118 Personal history of other malignant neoplasm of bronchus and lung; Z90.49 Acquired absence of other specified parts of digestive tract; Z90.710 Acquired absence of both cervix and uterus
CPT/HCPCS: 36415; 70450; 74176; 80053; 81001; 83605; 83690; 83735; 84145; 84439; 84443; 84480; 84484; 85025; 85610; 85730; 87040; 87077; 87086; 87186; 87635; 93970; 97161; 97166; 99285; A9270; J0696; J1650; J7030

== ENCOUNTER 2023-02-15 20:49 | Inpatient (IN) | payer OTHER, SELFPAY ==
[2023-02-15] VITALS (11 sets, daily range): BP systolic 119–120; BP diastolic 64–70; PULSE 107–120; RESP 15–22; TEMP 36.5; O2SAT 97–100
--- NOTE | ~2023-02-15 | XR_ITS ---
EXAMINATION: XR chest 1V portable DATE: 02/15/2023 21:21 INDICATION: Weakness and shortness of breath TECHNIQUE: frontal view of the chest was obtained. COMPARISON: Chest radiograph dated 01/13/2023 FINDINGS: Unchanged mild elevation the right hemidiaphragm. Suture line in the left mid and upper lung zone. No focal airspace opacities, pulmonary edema, pleural effusion or pneumothorax. The cardiomediastinal s ilhouette is normal. Visualized bones and soft tissues are unremarkable. IMPRESSION: 1. No acute cardiopulmonary disease. Reviewed, dictated and finalized at location A.
--- NOTE | 2023-02-15 21:00 | PC.NURSE ---
Patient arrived via EMS from [facility] in [facility] with soiled linens. Patient has skin break down to her left buttocks. Patient currently A&Ox4. Patient smelled of foul urine when cleaned up.
--- NOTE | 2023-02-15 21:09 | ECG_ITS ---
Measurements Intervals [place] Rate: 119 P: 24 WA: 161 QRS: 70 QRSD: 88 T: 22 QT: 438 QTc: 618 Interpretive Statements SINUS TACHYCARDIA POSSIBLE ANTERIOR MYOCARDIAL INFARCTION , PROBABLY OLD [30 ms Q WAVE IN V3/V4, OR R < 0.2 mV IN V4] PROBABLE INFERIOR MYOCARDIAL INFARCTION , PROBABLY OLD [35 ms Q WAVE IN II/aVF] ABNORMAL ECG COMPARED TO ECG 01/13/2023 10:52:50 SINUS TACHYCARDIA NOW PRESENT Electronically Signed On 02-16-2023 11:59:32 CDT by Moi Javed M.D.
[2023-02-15 21:21] LABS: Basophils Absolute Auto 0.1 K/mm3 (0.0-0.1); Basophils Percent Auto 0.6 % (0.2-1.2); Eosinophils Absolute Auto 0.3 K/mm3 (0-0.3); Eosinophils Percent Auto 1.6 % (0-4.4); Hematocrit 46.7 % (37.0-47.0); Hemoglobin 14.3 g/dL (12.0-15.0); Immature Granulocyte Absolute 0.11 K/mm3 (0.00-0.031); Immature Granulocyte Percent A 0.7 % (0-0.5); Lymphocytes Absolute Auto 2.01 K/mm3 (0.9-3.2); Lymphocytes Percent Auto 12.7 % (18.3-44.2); Mean Corpuscular HGB Conc 30.6 g/dl (32-36); Mean Corpuscular Hemoglobin 26.3 pg (26-34); Mean Platelet Volume 12.3 fl (7.4-10.4); Monocytes Absolute Auto 1.5 K/mm3 (0.1-0.6); Monocytes Percent Auto 9.2 % (2.6-8.5); Neutrophils Absolute Auto 11.9 K/mm3 (1.3-6.7); Neutrophils Percent Auto 75.2 % (45.5-73.1); Platelet Count Result 269 k/mm3 (150-375); Red Blood Count 5.43 M/mm3 (4.2-5.4); Red Cell Distribution Width 19.7 % (11.5-14.5); White Blood Count 15.8 K/mm3 (4.5-10.0)
[2023-02-15 21:32] LABS: Prothrombin Time 13.2 Seconds (11.1-14.7)
[2023-02-15 21:33] LABS: Partial Thromboplastin Time 23.7 SECONDS (22.3-36.8)
[2023-02-15 21:34] LABS: Lactic Acid Reflex 1.9 mmol/L (0.7-2.0)
[2023-02-15 21:36] LABS: Alanine Aminotransferase 30 U/L (6-35); Albumin Level 4.4 g/dL (3.5-5.1); Alkaline Phosphatase 117 U/L (38-126); Anion Gap 7 mmol/L (8-16); Appearance Urine Turbid (Clear); Aspartate Amino Transferase 28 U/L (14-36); Bacteria Urine 4+ /hpf; Bilirubin Urine Negative (Negative); Bilirubin,Total 0.9 mg/dL (0.2-1.3); Blood Urea Nitrogen 26 mg/dL (7-17); Calcium 9.8 mg/dL (8.4-10.2); Carbon Dioxide 25 mmol/L (22-30); Chloride 105 mmol/L (98-107); Color Urine Yellow (Yellow); Estimated CRCL calculation 50 ml/min; Estimated Glomerular Filt Rate 50; Glucose 175 mg/dL (65-110); Glucose Urine UA Negative (Negative); Ketones Urine Negative (Negative); Leukocyte Esterase Ur 2+ LEU/UL (Negative); Lipase 176 U/L (23-300); Magnesium 2.3 mg/dL (1.6-2.3); Need Manual Microscopic Reviewed; Nitrate Urine Positive (Negative); Non Pathogenic Casts 0-2; Potassium 3.3 mmol/L (3.4-5.0); Protein Urine 1+ mg/dL (Negative); Sodium 137 mmol/L (137-145); Specific Grav Ur 1.019 (1.001-1.035); Squamous Epithelial Cell Urine Many /hpf (Few); Triple Phosphate Crystal Urine Present /hpf; WBC Urine 51-100 /hpf; pH Urine 7.5 (5.0-9.0)
[2023-02-15 21:37] LABS: Add Urine Microscopic? YES
[2023-02-15 21:47] LABS: Troponin I < 0.012 ng/mL (0.000-0.034)
[2023-02-15 21:53] LABS: Procalcitonin 0.1 ng/mL
[2023-02-15] MEDS: SODIUM CHLORIDE 0.9% IV 1,000 ML 999 ML IV CONT (21:56)
[2023-02-15 21:57] LABS: Influenza A QL RT-PCR Negative (Negative); Influenza B QL RT-PCR Negative (Negative); SARS-CoV-2 RNA PCR Negative (Negative)
[2023-02-15 22:15] LABS: Strep Group A RT-PCR NOT DETECTED (Negative)
--- NOTE | 2023-02-15 22:15 | ED.GENADULT ---
HPI - General Adult General Chief complaint: Unspecified Stated complaint: lethargic Time Seen by Provider: 02/15/23 21:03 History of Present Illness HPI narrative: Patient is 62-year-old female who presents the emergency department with chief complaint of generalized weakness and possible UTI the patient reports that she has been feeling weak and rundown and reports that she was recently discharged from the hospital and reports that she has had some urinary symptoms. Patient reports symptoms or not improved by anything Related Data Home Medications Medication Instructions Recorded Confirmed hydroxyzine HCl 10 mg tablet 10 mg PO BID 01/13/23 02/07/23 olanzapine 10 mg tablet 10 mg PO DAILY 01/13/23 02/07/23 pregabalin 150 mg capsule (Lyrica) 150 mg PO TID 01/13/23 02/07/23 Allergies Allergy/AdvReac Type Severity Reaction Status Date / Time acetaminophen [From Tylenol] Allergy Unresponsiv Verified 02/15/23 20:54 e sumatriptan Allergy Unknown Verified 01/13/23 15:55 peach AdvReac Anaphylaxis Verified 01/13/23 15:55 Review of Systems Review of Systems: A 10 system review of systems was completed on the patient and is negative except for what is stated in the HPI. Nursing and ancillary documentation was reviewed. ON LICENSE OF [facility] Past Medical History Medical History Chronic lower back pain Deep venous thrombosis Depression with anxiety Kidney stone Lung cancer Status post partial left lobectomy, completely resected requiring no further treatment. Peripheral neuropathy Restless leg syndrome Tylenol overdose Surgical History Surgical History History of cholecystectomy History of hysterectomy History of lobectomy of lung Left partial lobectomy for lung cancer. Family History Family History Mother Diabetes mellitus Heart attack Social History Social History Social History: It is noted that the patient is . She tells me she is homeless. She tells me that she has had 2 sons. She tells me that she is currently homeless. Surrogate medical decision maker: Taya Meredith, sister. Code status: Full code Smoking packs per day: 0.5 Smoking cigarettes per day: 10.0 Years smoked: 37 Smoking pack-years: 18.50 Smoking status: Current every day smoker Tobacco type: cigarettes Alcohol intake: current Drinks per week: 3 Substance use: never Lack of Transportation: No Lack of Food: Sometimes True Current Housing: I Do Not Have Housing Concerned About Future Housing: No Difficulty Paying Gas/Electric Bills: No Difficulty Paying for Meds: No Currently Unemployed: No Education: High School Diploma/GED Difficulty w/ Childcare or Family Care: No Spiritual care concerns: No Exam Narrative: GENERAL: Well-appearing, well-nourished, and in no acute distress. HEAD: Normocephalic, atraumatic. EYES: PERRLA and EOMI. ENT: Nares clear, no rhinorrhea or epistaxis. Mucous membranes moist. NECK: Supple. CHEST: Clear to auscultation. No respiratory distress. HEART: Regular rate and rhythm. No murmur heard. Normal peripheral pulses. ABDOMEN: Soft, nontender, nondistended, normal active bowel sounds. EXTREMITIES: Normal range of motion. No edema. SKIN: Warm, dry, no rash. NEURO: No focal deficits. Alert and oriented x3. PSYCH: Normal mood and affect. Course Vital Signs Vital signs: Vital Signs Temperature 36.5 C 02/15/23 21:08 Pulse Rate 120 H 02/15/23 21:08 Respiratory Rate 15 02/15/23 21:08 Blood Pressure 120/64 02/15/23 21:08 Pulse Oximetry 100 02/15/23 21:08 Temperature 36.5 C 02/15/23 21:08 Pulse Rate 115 H 02/15/23 21:51 Respiratory Rate 15 02/15/23 21:08 Blood Pressure 120/64 08
--- NOTE | 2023-02-15 23:20 | PM.IMHP ---
H&P: HPI History of Present Illness Date/Time: 02/15/23 23:20 Chief Complaint: Generalized weakness Narrative: This is a 62-year-old female with past medical history significant for chronic lower back pain, the ventrum boxes, depression with anxiety, lung cancer, peripheral neuropathy, restless leg syndrome. Patient presents to the emergency room due to generalized weakness, fatigue, poor appetite. Patient is obtunded can not really give much history. Preliminary workup was significant for urinalysis with WBCs present 50-100 per high-power field range, creatinine was 1.1, BUN was 26 patient tested negative for influenza type A influenza type B COVID-19 a chest x-ray did nausea acute findings. Patient has been admitted for further evaluation management and treatment. EXAMINATION: XR chest 1V portable DATE: 02/15/2023 21:21 INDICATION: Weakness and shortness of breath TECHNIQUE: frontal view of the chest was obtained. COMPARISON: Chest radiograph dated 01/13/2023 FINDINGS: Unchanged mild elevation the right hemidiaphragm. Suture line in the left mid and upper lung zone. No focal airspace opacities, pulmonary edema, pleural effusion or pneumothorax. The cardiomediastinal silhouette is normal. Visualized bones and soft tissues are unremarkable. IMPRESSION: 1. No acute cardiopulmonary disease. Review of Systems Review of Systems: Generalized weakness, poor appetite, lethargy, obtundation. ROS unobtainable: Yes unobtainable due to mental status (Contributing some of the history) PMFSH Past Medical History Medical History Chronic lower back pain Deep venous thrombosis Depression with anxiety Kidney stone Lung cancer Status post partial left lobectomy, completely resected requiring no further treatment. Peripheral neuropathy Restless leg syndrome Tylenol overdose Surgical History Surgical History History of cholecystectomy History of hysterectomy History of lobectomy of lung Left partial lobectomy for lung cancer. Family History Family History Mother Diabetes mellitus Heart attack Social History Social History Social History: It is noted that the patient is . She tells me she is homeless. She tells me that she has had 2 sons. She tells me that she is currently homeless. Surrogate medical decision maker: Taya Harper, sister. Code status: Full code Smoking packs per day: 1 Smoking cigarettes per day: 20.0 Years smoked: 37 Smoking pack-years: 37.00 Smoking status: Former smoker Tobacco type: cigarettes Alcohol intake: former Drinks per week: 3 Substance use: never Lack of Transportation: No Lack of Food: Never True Current Housing: I Have Housing Concerned About Future Housing: No Difficulty Paying Gas/Electric Bills: No Difficulty Paying for Meds: No Currently Unemployed: No Education: High School Diploma/GED Difficulty w/ Childcare or Family Care: No Spiritual care concerns: No Meds Home Medications and Allergies Home Medications Medication Instructions Recorded Confirmed Type hydroxyzine HCl 10 mg tablet 10 mg PO BID PRN Anxiety 01/13/23 02/16/23 History olanzapine 10 mg tablet 10 mg PO HS 01/13/23 02/16/23 History pregabalin 150 mg capsule (Lyrica) 150 mg PO TID 01/13/23 02/16/23 History nitrofurantoin 100 mg PO Q12H 3 days #6 caps 02/09/23 02/16/23 Rx monohydrate/macrocrystals 100 mg capsule (Macrobid) tramadol 50 mg tablet 50 mg PO Q6H PRN pain #10 tabs 02/09/23 02/16/23 Rx ergocalciferol (vitamin D2) 1,250 1,250 mcg PO WEEKLY 02/16/23 02/16/23 History mcg (50,000 unit) capsule fluticasone propionate 50 1 spray intranasal DAILY 02/16/23 02/16/23 History mcg/actuation nasal
[2023-02-16 00:06] VITALS: BP 108/43; PULSE 105; RESP 16; TEMP 36.3; O2SAT 98
--- NOTE | 2023-02-16 00:16 | ADMGEN ---
This patient, Angela Peterson, was admitted to [facility] Surg Room 331-02. Patient/family oriented to hospital policies and general routines including ID bracelet, bed and alarms, visiting hours, pain management, procedures, bathroom and other care routines, personal items, smoking policy, room service/diet, and visiting hours. Information on how to activate the Rapid Response Team has been discussed. Patient/Family are encouraged to report perceived risks to care and to ask questions if they do not understand what they are told or what they should do.
[2023-02-16 01:47] LABS: Troponin I < 0.012 ng/mL (0.000-0.034)
[2023-02-16 03:04] LABS: Glucose Point of Care 154 mg/dl (65-105)
[2023-02-16 03:10] VITALS: BP 127/62; PULSE 81; RESP 14; TEMP 36.4; O2SAT 96
[2023-02-16 05:30] VITALS: BP 109/43; PULSE 102; RESP 16; TEMP 36.4; O2SAT 95
[2023-02-16 05:58] VITALS: BP 127/67; PULSE 86; RESP 14; O2SAT 96
--- NOTE | 2023-02-16 06:53 | PC.NURSE ---
rapid response called at 0255, refer to rapid documentation, patients vitals stable
[2023-02-16] MEDS: PREGABALIN (*CRX) 75 MG CAPSULE 150 MG PO ×3 (08:18→16:48)
[2023-02-16] MEDS: oxyBUTYnin CHLORIDE XL 5 MG TAB.ER.24 PO (08:18)
--- NOTE | 2023-02-16 10:45 | PM.IMPN ---
Progress Note: A&P Assessment and Plan (1) Urinary tract infection: Qualifiers: Urinary tract infection type: site unspecified Hematuria presence: without hematuria Qualified Code(s): N39.0 - Urinary tract infection, site not specified Code(s): N39.0 - Urinary tract infection, site not specified Status: Acute Assessment and Plan: UA peers infectious with positive nitrates, 2+ leukocyte esterase, wbc's 51-100%, 4+ bacteria continue Rocephin for now trend urine output await culture results tailor antibiotics to culture results Appears to have been on [place] outpatient which has failed at this point (2) Chronic lower back pain: Qualifiers: Back pain laterality: unspecified Sciatica presence: without sciatica Qualified Code(s): M54.50 - Low back pain, unspecified; G89.29 - Other chronic pain Code(s): M54.50 - Low back pain, unspecified; G89.29 - Other chronic pain Status: Acute Assessment and Plan: Tylenol p.r.n. Trend pain Add [place] if indicated (3) Restless leg syndrome: Code(s): G25.81 - Restless legs syndrome Status: Acute Assessment and Plan: Continue pregabalin Stable (4) Generalized weakness: Code(s): R53.1 - Weakness Status: Acute Assessment and Plan: Most like related to the UTI PT/OT consulted Fall precautions (5) Peripheral neuropathy: Qualifiers: Peripheral neuropathy type: polyneuropathy, unspecified Qualified Code(s): G62.9 - Polyneuropathy, unspecified Code(s): G62.9 - Polyneuropathy, unspecified Status: Acute Assessment and Plan: Continue on pregabalin Stable (6) Depression with anxiety: Code(s): F41.8 - Other specified anxiety disorders Status: Acute Assessment and Plan: Continue home topiramate, olanzapine, mirtazapine Time Spent With Patient Time: 48 minutes Time with patient: Greater than 35 minutes Subjective Date/time seen: 02/16/23 1100 Interval history: 02/16/23 1100 Patient was lying in bed. Patient stated that she was doing better today. She did state that she was pretty weak and was afraid to get on her feet. She states she was slightly nauseated however she denies any chest pain, shortness a breath, vomiting, diarrhea constipation. 02/15/23? 23:20 This is a 62-year-old female with past medical history significant for chronic lower back pain, the ventrum boxes, depression with anxiety, lung cancer, peripheral neuropathy, restless leg syndrome.? Patient presents to the emergency room due to generalized weakness, fatigue, poor appetite.? Patient is obtunded can not really give much history.? Preliminary workup was significant for urinalysis with WBCs present 50-100 per high-power field range, creatinine was 1.1, BUN was 26 patient tested negative for influenza type A influenza type B COVID-19 a chest x-ray did nausea acute findings.? Patient has been admitted for further evaluation management and treatment. Review of Systems Review of Systems: All systems reviewed & are unremarkable except as noted in HPI and below Exam Narrative: General: well-nourished, tired and weak-appearing 62-year-old female, laying in bed, comfortable, NARD Neuro: awake, alert and oriented x4, speech clear, no focal neuro deficits noted HEENMT: normocephalic, atraumatic, EOMI, sclerae anicteric, moist oral mucosa Respiratory: Clear to auscultation bilaterally without crackles, rhonchi or wheezes, nonlabored breathing Cardio: regular rate, regular rhythm with S1-S2 Abdomen: nondistended, normoactive bowel sounds, soft, nontender to palpation Extremities: no edema, erythema, or tenderness to palpation, DP pulses 2+ bilaterally Skin: no rashes or lesions, warm and dry Psych: appropriate mood and affect, judgment and insight intact Objective Data
[2023-02-16 10:57] LABS: Basophils Absolute Auto 0.1 K/mm3 (0.0-0.1); Basophils Percent Auto 0.5 % (0.2-1.2); Eosinophils Absolute Auto 0.2 K/mm3 (0-0.3); Eosinophils Percent Auto 1.6 % (0-4.4); Hematocrit 41.1 % (37.0-47.0); Hemoglobin 12.5 g/dL (12.0-15.0); Immature Granulocyte Absolute 0.08 K/mm3 (0.00-0.031); Immature Granulocyte Percent A 0.6 % (0-0.5); Lymphocytes Absolute Auto 1.56 K/mm3 (0.9-3.2); Mean Corpuscular HGB Conc 30.4 g/dl (32-36); Mean Corpuscular Hemoglobin 25.9 pg (26-34); Mean Corpuscular Volume 85.1 fl (80-100); Mean Platelet Volume 12.4 fl (7.4-10.4); Monocytes Absolute Auto 1.1 K/mm3 (0.1-0.6); Monocytes Percent Auto 8.6 % (2.6-8.5); Neutrophils Percent Auto 76.7 % (45.5-73.1); Platelet Count Result 246 k/mm3 (150-375); Red Blood Count 4.83 M/mm3 (4.2-5.4); Red Cell Distribution Width 18.7 % (11.5-14.5)
[2023-02-16 14:00] VITALS: BP 141/71; PULSE 80; RESP 18; TEMP 37; O2SAT 100
[2023-02-16] MEDS: ENOXAPARIN 40 MG/0.4 ML SYRINGE SUB-Q (16:49)
[2023-02-16 20:22] LABS: Alanine Aminotransferase 26 U/L (6-35); Albumin Level 3.8 g/dL (3.5-5.1); Alkaline Phosphatase 96 U/L (38-126); Anion Gap 7 mmol/L (8-16); Aspartate Amino Transferase 21 U/L (14-36); Bilirubin,Total 0.5 mg/dL (0.2-1.3); Blood Urea Nitrogen 23 mg/dL (7-17); Calcium 9.2 mg/dL (8.4-10.2); Carbon Dioxide 26 mmol/L (22-30); Chloride 107 mmol/L (98-107); Estimated CRCL calculation 60 ml/min; Estimated Glomerular Filt Rate > 60; Glucose 209 mg/dL (65-110); Potassium 3.4 mmol/L (3.4-5.0); Sodium 140 mmol/L (137-145)
[2023-02-16] MEDS: MIRTAZAPINE 15 MG TABLET PO (20:47)
[2023-02-16] MEDS: OLANZapine 5 MG TABLET 10 MG PO (20:47)
[2023-02-16 22:00] VITALS: BP 105/58; PULSE 115; RESP 18; TEMP 35.8; O2SAT 99
[2023-02-17 06:00] VITALS: BP 135/83; PULSE 105; RESP 18; TEMP 36.1; O2SAT 99
[2023-02-17 06:12] LABS: Basophils Absolute Auto 0.1 K/mm3 (0.0-0.1); Basophils Percent Auto 0.6 % (0.2-1.2); Eosinophils Absolute Auto 0.2 K/mm3 (0-0.3); Eosinophils Percent Auto 1.9 % (0-4.4); Hematocrit 40.1 % (37.0-47.0); Hemoglobin 12.3 g/dL (12.0-15.0); Immature Granulocyte Absolute 0.08 K/mm3 (0.00-0.031); Immature Granulocyte Percent A 0.8 % (0-0.5); Lymphocytes Absolute Auto 1.65 K/mm3 (0.9-3.2); Lymphocytes Percent Auto 16.1 % (18.3-44.2); Mean Corpuscular HGB Conc 30.7 g/dl (32-36); Mean Corpuscular Hemoglobin 26.1 pg (26-34); Mean Platelet Volume 12.4 fl (7.4-10.4); Monocytes Absolute Auto 0.9 K/mm3 (0.1-0.6); Monocytes Percent Auto 8.5 % (2.6-8.5); Neutrophils Absolute Auto 7.4 K/mm3 (1.3-6.7); Neutrophils Percent Auto 72.1 % (45.5-73.1); Platelet Count Result 248 k/mm3 (150-375); Red Blood Count 4.72 M/mm3 (4.2-5.4); Red Cell Distribution Width 18.4 % (11.5-14.5); White Blood Count 10.3 K/mm3 (4.5-10.0)
[2023-02-17 06:44] LABS: Alanine Aminotransferase 23 U/L (6-35); Albumin Level 3.5 g/dL (3.5-5.1); Alkaline Phosphatase 98 U/L (38-126); Anion Gap 8 mmol/L (8-16); Aspartate Amino Transferase 20 U/L (14-36); Bilirubin,Total 0.4 mg/dL (0.2-1.3); Blood Urea Nitrogen 20 mg/dL (7-17); Calcium 8.8 mg/dL (8.4-10.2); Carbon Dioxide 23 mmol/L (22-30); Chloride 108 mmol/L (98-107); Estimated CRCL calculation 60 ml/min; Estimated Glomerular Filt Rate > 60; Glucose 139 mg/dL (65-110); Potassium 3.4 mmol/L (3.4-5.0); Sodium 139 mmol/L (137-145)
[2023-02-17] MEDS: SODIUM CHLORIDE 0.9% IV 1,000 ML 100 ML IV CONT ×2 (09:39→20:18)
[2023-02-17] MEDS: PREGABALIN (*CRX) 75 MG CAPSULE 150 MG PO ×3 (09:44→17:20)
[2023-02-17] MEDS: ENOXAPARIN 40 MG/0.4 ML SYRINGE SUB-Q (09:44)
[2023-02-17] MEDS: oxyBUTYnin CHLORIDE XL 5 MG TAB.ER.24 PO (09:44)
--- NOTE | 2023-02-17 11:15 | P.PNIM_ITS ---
Progress Note: A&P Assessment and Plan (1) Urinary tract infection: Qualifiers: Hematuria presence: without hematuria Urinary tract infection type: site unspecified Qualified Code(s): N39.0 - Urinary tract infection, site not specified Code(s): N39.0 - Urinary tract infection, site not specified Status: Acute Assessment and Plan: * UA peers infectious with positive nitrates, 2+ leukocyte esterase, wbc's 51- 100%, 4+ bacteria * continue Rocephin for now * trend urine output * Urine culture grew E coli awaiting sensitivities * tailor antibiotics to culture results * Appears to have been on Macrobid outpatient which has failed at this point (2) Chronic lower back pain: Qualifiers: Back pain laterality: unspecified Sciatica presence: without sciatica Qualified Code(s): M54.50 - Low back pain, unspecified; G89.29 - Other chronic pain Code(s): M54.50 - Low back pain, unspecified; G89.29 - Other chronic pain Status: Acute Assessment and Plan: * Tylenol p.r.n. * Trend pain * Add [place] if indicated (3) Restless leg syndrome: Code(s): G25.81 - Restless legs syndrome Status: Acute Assessment and Plan: * Continue pregabalin * Stable (4) Generalized weakness: Code(s): R53.1 - Weakness Status: Acute Assessment and Plan: * Most like related to the UTI * PT/OT consulted * Fall precautions (5) Peripheral neuropathy: Qualifiers: Peripheral neuropathy type: polyneuropathy, unspecified Qualified Code(s): G62.9 - Polyneuropathy, unspecified Code(s): G62.9 - Polyneuropathy, unspecified Status: Acute Assessment and Plan: * Continue on pregabalin * Stable (6) Depression with anxiety: Code(s): F41.8 - Other specified anxiety disorders Status: Acute Assessment and Plan: * Continue home topiramate, olanzapine, mirtazapine (7) Sepsis: Qualifiers: Sepsis acute organ dysfunction status: without acute organ dysfunction Sepsis type: sepsis due to unspecified organism Qualified Code(s): A41.9 - Sepsis, unspecified organism Code(s): A41.9 - Sepsis, unspecified organism Status: Acute Assessment and Plan: * Meets SIRS criteria with leukocytosis, tachycardia, tachypnea, and source of infection * Source of infection UTI and Bacteremia * Blood cultures positive for gram positive cocci in clusters in both bottles * IV fluids given in ED * Urine culture is pending * Ceftriaxone and vanco continued * WBC trending down * Continue to trend labs and vital signs * Stable (8) Bacteremia: Code(s): R78.81 - Bacteremia Status: Acute Assessment and Plan: * Blood cultures grew gram positive cocci in clusters isolated * Vanco and ceftriaxone on board * Repeat cultures ordered * Continue to trend labs Time Spent With Patient Time: 59 minutes Time with patient: Greater than 35 minutes Subjective Date/time seen: 02/17/23 111 Interval history: 02/17/231114 Patient stated that she did feel like herself today. She stated that she just feels a little off. Currently she denies any chest pain, shortness a breath, nausea, vomiting,
--- NOTE | 2023-02-17 11:15 | PM.IMPN ---
Progress Note: A&P Assessment and Plan (1) Urinary tract infection: Qualifiers: Hematuria presence: without hematuria Urinary tract infection type: site unspecified Qualified Code(s): N39.0 - Urinary tract infection, site not specified Code(s): N39.0 - Urinary tract infection, site not specified Status: Acute Assessment and Plan: UA peers infectious with positive nitrates, 2+ leukocyte esterase, wbc's 51-100%, 4+ bacteria continue Rocephin for now trend urine output Urine culture grew E coli awaiting sensitivities tailor antibiotics to culture results Appears to have been on Macrobid outpatient which has failed at this point (2) Chronic lower back pain: Qualifiers: Back pain laterality: unspecified Sciatica presence: without sciatica Qualified Code(s): M54.50 - Low back pain, unspecified; G89.29 - Other chronic pain Code(s): M54.50 - Low back pain, unspecified; G89.29 - Other chronic pain Status: Acute Assessment and Plan: Tylenol p.r.n. Trend pain Add [place] if indicated (3) Restless leg syndrome: Code(s): G25.81 - Restless legs syndrome Status: Acute Assessment and Plan: Continue pregabalin Stable (4) Generalized weakness: Code(s): R53.1 - Weakness Status: Acute Assessment and Plan: Most like related to the UTI PT/OT consulted Fall precautions (5) Peripheral neuropathy: Qualifiers: Peripheral neuropathy type: polyneuropathy, unspecified Qualified Code(s): G62.9 - Polyneuropathy, unspecified Code(s): G62.9 - Polyneuropathy, unspecified Status: Acute Assessment and Plan: Continue on pregabalin Stable (6) Depression with anxiety: Code(s): F41.8 - Other specified anxiety disorders Status: Acute Assessment and Plan: Continue home topiramate, olanzapine, mirtazapine (7) Sepsis: Qualifiers: Sepsis acute organ dysfunction status: without acute organ dysfunction Sepsis type: sepsis due to unspecified organism Qualified Code(s): A41.9 - Sepsis, unspecified organism Code(s): A41.9 - Sepsis, unspecified organism Status: Acute Assessment and Plan: Meets SIRS criteria with leukocytosis, tachycardia, tachypnea, and source of infection Source of infection UTI and Bacteremia Blood cultures positive for gram positive cocci in clusters in both bottles IV fluids given in ED Urine culture is pending Ceftriaxone and vanco continued WBC trending down Continue to trend labs and vital signs Stable (8) Bacteremia: Code(s): R78.81 - Bacteremia Status: Acute Assessment and Plan: Blood cultures grew gram positive cocci in clusters isolated Vanco and ceftriaxone on board Repeat cultures ordered Continue to trend labs Time Spent With Patient Time: 59 minutes Time with patient: Greater than 35 minutes Subjective Date/time seen: 02/17/23 111 Interval history: 02/17/23 111 Patient stated that she did feel like herself today. She stated that she just feels a little off. Currently she denies any chest pain, shortness a breath, nausea, vomiting, diarrhea constipation. She also stated that she does have a headache. She denies any sweats fevers or chills. She was very concerned about going back to her home. Care coordination did come in to reassure that she will go back to [facility]. 02/16/23 1100 Patient was lying in bed. Patient stated that she was doing better today. She did state that she was pretty weak and was afraid to get on her feet. She states she was slightly nauseated however she denies any chest pain, shortness a breath, vomiting, diarrhea constipation. 02/15/23? 23:20 This is a 62-year-old female with past medical history significant for chronic lower back
[2023-02-17] MEDS: KETOROLAC 15 MG/ML VIAL (*BKC) IV PUSH (12:20)
[2023-02-17 14:00] VITALS: BP 101/64; PULSE 89; RESP 14; TEMP 35.7; O2SAT 100
[2023-02-17 20:39] VITALS: BP 104/60; PULSE 83
[2023-02-17 21:23] VITALS: BP 106/64; PULSE 81; RESP 16; TEMP 36; O2SAT 98
[2023-02-17 21:57] VITALS: O2SAT 98
[2023-02-18 06:00] VITALS: BP 104/77; PULSE 87; RESP 14; TEMP 36.2; O2SAT 99
[2023-02-18 06:41] LABS: Basophils Absolute Auto 0.1 K/mm3 (0.0-0.1); Eosinophils Absolute Auto 0.2 K/mm3 (0-0.3); Eosinophils Percent Auto 2.9 % (0-4.4); Hemoglobin 11.6 g/dL (12.0-15.0); Immature Granulocyte Absolute 0.06 K/mm3 (0.00-0.031); Immature Granulocyte Percent A 0.8 % (0-0.5); Immature Platelet Fraction Pct 14.8 % (0.9-11.2); Lymphocytes Absolute Auto 1.39 K/mm3 (0.9-3.2); Lymphocytes Percent Auto 17.4 % (18.3-44.2); Mean Corpuscular HGB Conc 29.7 g/dl (32-36); Mean Corpuscular Hemoglobin 26.2 pg (26-34); Mean Corpuscular Volume 88.2 fl (80-100); Mean Platelet Volume 12.5 fl (7.4-10.4); Monocytes Absolute Auto 0.6 K/mm3 (0.1-0.6); Monocytes Percent Auto 7.4 % (2.6-8.5); Neutrophils Absolute Auto 5.6 K/mm3 (1.3-6.7); Neutrophils Percent Auto 70.5 % (45.5-73.1); Platelet Count Result 202 k/mm3 (150-375); Red Blood Count 4.42 M/mm3 (4.2-5.4)
[2023-02-18 07:06] LABS: Alanine Aminotransferase 20 U/L (6-35); Albumin Level 3.1 g/dL (3.5-5.1); Alkaline Phosphatase 91 U/L (38-126); Aspartate Amino Transferase 18 U/L (14-36); Bilirubin,Total 0.3 mg/dL (0.2-1.3); Blood Urea Nitrogen 12 mg/dL (7-17); Calcium 8.7 mg/dL (8.4-10.2); Carbon Dioxide 21 mmol/L (22-30); Estimated CRCL calculation 67 ml/min; Estimated Glomerular Filt Rate > 60; Glucose 120 mg/dL (65-110); Potassium 3.7 mmol/L (3.4-5.0)
[2023-02-18 07:27] LABS: Anisocytosis 1+ (NORMAL); Ovalocytes 1+ (NORMAL); Platelet Estimate Adequate (Adequate)
[2023-02-18 07:28] LABS: Schistocytes None Seen (NORMAL)
[2023-02-18] MEDS: SODIUM CHLORIDE 0.9% IV 1,000 ML 100 ML IV CONT ×2 (09:19→19:48)
[2023-02-18] MEDS: ENOXAPARIN 40 MG/0.4 ML SYRINGE SUB-Q (09:20)
[2023-02-18] MEDS: ERTAPENEM 1 GM/NS 50 ML 1 GM/50 ML BAG IVPB (09:20)
[2023-02-18] MEDS: PREGABALIN (*CRX) 75 MG CAPSULE 150 MG PO ×3 (09:20→16:34)
[2023-02-18] MEDS: oxyBUTYnin CHLORIDE XL 5 MG TAB.ER.24 PO (09:21)
[2023-02-18 13:21] LABS: Anion Gap 8 mmol/L (8-16); Chloride 109 mmol/L (98-107); Sodium 138 mmol/L (137-145)
[2023-02-18 14:00] VITALS: BP 126/63; PULSE 96; RESP 18; TEMP 36.7; O2SAT 98
--- NOTE | 2023-02-18 14:21 | P.PNIM_ITS ---
Progress Note: A&P Assessment and Plan (1) Urinary tract infection: Qualifiers: Hematuria presence: without hematuria Urinary tract infection type: site unspecified Qualified Code(s): N39.0 - Urinary tract infection, site not specified Code(s): N39.0 - Urinary tract infection, site not specified Status: Acute Assessment and Plan: * UA peers infectious with positive nitrates, 2+ leukocyte esterase, wbc's 51- 100%, 4+ bacteria Urine culture on 02/07/2023 positive for E coli ESBL. Rocephin discontinued and ertapenem started. * trend urine output * Urine culture grew E coli awaiting sensitivities * tailor antibiotics to culture results * Appears to have been on Macrobid outpatient which has failed at this point (2) Chronic lower back pain: Qualifiers: Back pain laterality: unspecified Sciatica presence: without sciatica Qualified Code(s): M54.50 - Low back pain, unspecified; G89.29 - Other chronic pain Code(s): M54.50 - Low back pain, unspecified; G89.29 - Other chronic pain Status: Acute Assessment and Plan: * Tylenol p.r.n. * Trend pain * Add [place] if indicated (3) Restless leg syndrome: Code(s): G25.81 - Restless legs syndrome Status: Acute Assessment and Plan: * Continue pregabalin * Stable (4) Generalized weakness: Code(s): R53.1 - Weakness Status: Acute Assessment and Plan: * Most like related to the UTI * PT/OT consulted * Fall precautions (5) Peripheral neuropathy: Qualifiers: Peripheral neuropathy type: polyneuropathy, unspecified Qualified Code(s): G62.9 - Polyneuropathy, unspecified Code(s): G62.9 - Polyneuropathy, unspecified Status: Acute Assessment and Plan: * Continue on pregabalin * Stable (6) Depression with anxiety: Code(s): F41.8 - Other specified anxiety disorders Status: Acute Assessment and Plan: * Continue home topiramate, olanzapine, mirtazapine (7) Sepsis: Qualifiers: Sepsis type: sepsis due to unspecified organism Sepsis acute organ dysfunction status: without acute organ dysfunction Qualified Code(s): A41.9 - Sepsis, unspecified organism Code(s): A41.9 - Sepsis, unspecified organism Status: Resolved Assessment and Plan: * Meets SIRS criteria with leukocytosis, tachycardia, tachypnea, and source of infection * Source of infection UTI and Bacteremia * Blood cultures positive for gram positive cocci in clusters in 1 bottle and Staph epidermis in another * IV fluids given in ED * Urine culture positive for E coli sensitivities pending. * Ertapenem and vanco continued * WBC within normal limits * Continue to trend labs and vital signs * Stable (8) Bacteremia: Code(s): R78.81 - Bacteremia Status: Acute Assessment and Plan: * Blood cultures grew gram positive cocci in clusters in 1 bottle and Staph epidermis in another * Vanco and ertapenem on board * 02/17 Repeat cultures with no growth to * Continue to trend labs Subjective Date/time seen: 02/18/23 14:21 Interval history: Patient states that she is feeling much better today. Discussed with her why we are changing up her anti
--- NOTE | 2023-02-18 14:21 | PM.IMPN ---
Progress Note: A&P Assessment and Plan (1) Urinary tract infection: Qualifiers: Hematuria presence: without hematuria Urinary tract infection type: site unspecified Qualified Code(s): N39.0 - Urinary tract infection, site not specified Code(s): N39.0 - Urinary tract infection, site not specified Status: Acute Assessment and Plan: UA peers infectious with positive nitrates, 2+ leukocyte esterase, wbc's 51-100%, 4+ bacteria Urine culture on 02/07/2023 positive for E coli ESBL. Rocephin discontinued and ertapenem started. trend urine output Urine culture grew E coli awaiting sensitivities tailor antibiotics to culture results Appears to have been on [place] outpatient which has failed at this point (2) Chronic lower back pain: Qualifiers: Back pain laterality: unspecified Sciatica presence: without sciatica Qualified Code(s): M54.50 - Low back pain, unspecified; G89.29 - Other chronic pain Code(s): M54.50 - Low back pain, unspecified; G89.29 - Other chronic pain Status: Acute Assessment and Plan: Tylenol p.r.n. Trend pain Add [place] if indicated (3) Restless leg syndrome: Code(s): G25.81 - Restless legs syndrome Status: Acute Assessment and Plan: Continue pregabalin Stable (4) Generalized weakness: Code(s): R53.1 - Weakness Status: Acute Assessment and Plan: Most like related to the UTI PT/OT consulted Fall precautions (5) Peripheral neuropathy: Qualifiers: Peripheral neuropathy type: polyneuropathy, unspecified Qualified Code(s): G62.9 - Polyneuropathy, unspecified Code(s): G62.9 - Polyneuropathy, unspecified Status: Acute Assessment and Plan: Continue on pregabalin Stable (6) Depression with anxiety: Code(s): F41.8 - Other specified anxiety disorders Status: Acute Assessment and Plan: Continue home topiramate, olanzapine, mirtazapine (7) Sepsis: Qualifiers: Sepsis type: sepsis due to unspecified organism Sepsis acute organ dysfunction status: without acute organ dysfunction Qualified Code(s): A41.9 - Sepsis, unspecified organism Code(s): A41.9 - Sepsis, unspecified organism Status: Resolved Assessment and Plan: Meets SIRS criteria with leukocytosis, tachycardia, tachypnea, and source of infection Source of infection UTI and Bacteremia Blood cultures positive for gram positive cocci in clusters in 1 bottle and Staph epidermis in another IV fluids given in ED Urine culture positive for E coli sensitivities pending. Ertapenem and vanco continued WBC within normal limits Continue to trend labs and vital signs Stable (8) Bacteremia: Code(s): R78.81 - Bacteremia Status: Acute Assessment and Plan: Blood cultures grew gram positive cocci in clusters in 1 bottle and Staph epidermis in another Vanco and ertapenem on board 02/17 Repeat cultures with no growth to Continue to trend labs Subjective Date/time seen: 02/18/23 14:21 Interval history: Patient states that she is feeling much better today. Discussed with her why we are changing up her antibiotics. She denies any abdominal pain, nausea, vomiting, chest pain, shortness a breath, dizziness or lightheadedness. She could possibly go home on IV antibiotics but I am not suspecting that would be the case for right now. Will continue to monitor her urine and blood cultures. Exam Narrative: GENERAL: Comfortable, no acute distress HENMT: moist mucous membranes EYES: EOM intact b/l NECK: no lymphadenopathy RESPIRATORY: clear to auscultation CARDIO: RRR GI: soft, nontender, bowel sounds present SKIN: no rashes EXTREMITIES: no edema, redness or tenderness Objective Data Vital Signs Vital Signs: Vital Signs -
--- NOTE | 2023-02-18 14:39 | PC.NURSE ---
Pt is A&O2 female. Pt unable to recall date. Pt has participated and contribute to plan of care. Pt denies any pain at time of assessment. Pt inquires about discharge date. Pt educated that it is unknown at this time what the discharge date will be. Pt accepting of answer. Pt expresses no other needs at this time. Will continue to monitor pt.
[2023-02-18 17:54] LABS: Vancomycin Trough 12.8 ug/mL (10.0-20.0)
[2023-02-18 20:14] VITALS: BP 115/60; PULSE 91
[2023-02-18] MEDS: MIRTAZAPINE 15 MG TABLET PO (20:18)
[2023-02-18] MEDS: OLANZapine 5 MG TABLET 10 MG PO (20:18)
[2023-02-18 22:00] VITALS: BP 126/74; PULSE 86; RESP 14; TEMP 35.9; O2SAT 98
[2023-02-19 06:00] VITALS: BP 131/76; PULSE 89; RESP 16; TEMP 36.2; O2SAT 98
[2023-02-19 06:05] LABS: Hematocrit 35.2 % (37.0-47.0); Hemoglobin 10.7 g/dL (12.0-15.0); Mean Corpuscular HGB Conc 30.4 g/dl (32-36); Mean Corpuscular Hemoglobin 26.3 pg (26-34); Mean Corpuscular Volume 86.5 fl (80-100); Mean Platelet Volume 11.9 fl (7.4-10.4); Platelet Count Result 195 k/mm3 (150-375); Red Blood Count 4.07 M/mm3 (4.2-5.4); White Blood Count 8.7 K/mm3 (4.5-10.0)
[2023-02-19 06:21] LABS: Alanine Aminotransferase 21 U/L (6-35); Albumin Level 3.1 g/dL (3.5-5.1); Alkaline Phosphatase 86 U/L (38-126); Anion Gap 6 mmol/L (8-16); Aspartate Amino Transferase 30 U/L (14-36); Bilirubin,Total 0.2 mg/dL (0.2-1.3); Blood Urea Nitrogen 13 mg/dL (7-17); Calcium 8.3 mg/dL (8.4-10.2); Carbon Dioxide 23 mmol/L (22-30); Chloride 111 mmol/L (98-107); Estimated CRCL calculation 60 ml/min; Estimated Glomerular Filt Rate > 60; Glucose 134 mg/dL (65-110); Potassium 3.4 mmol/L (3.4-5.0); Sodium 140 mmol/L (137-145)
[2023-02-19] MEDS: SODIUM CHLORIDE 0.9% IV 1,000 ML 100 ML IV CONT (06:56)
[2023-02-19] MEDS: PREGABALIN (*CRX) 75 MG CAPSULE 150 MG PO ×3 (08:37→18:48)
[2023-02-19] MEDS: oxyBUTYnin CHLORIDE XL 5 MG TAB.ER.24 PO (08:37)
[2023-02-19] MEDS: ERTAPENEM 1 GM/NS 50 ML 1 GM/50 ML BAG IVPB (08:38)
[2023-02-19] MEDS: ENOXAPARIN 40 MG/0.4 ML SYRINGE SUB-Q (08:41)
[2023-02-19 09:03] VITALS: O2SAT 97
[2023-02-19 14:00] VITALS: BP 133/48; PULSE 91; RESP 16; TEMP 36.6; O2SAT 99
--- NOTE | 2023-02-19 14:21 | PCPTNOTE ---
Patient refused treatment this session. Patient reported she oh not feel well today and did not feel up for working with therapy. RN made aware of patient not feeling well.
--- NOTE | 2023-02-19 16:01 | P.PNIM_ITS ---
Progress Note: A&P Assessment and Plan (1) Urinary tract infection: Qualifiers: Hematuria presence: without hematuria Urinary tract infection type: site unspecified Qualified Code(s): N39.0 - Urinary tract infection, site not specified Code(s): N39.0 - Urinary tract infection, site not specified Status: Acute Assessment and Plan: * UA peers infectious with positive nitrates, 2+ leukocyte esterase, wbc's 51- 100%, 4+ bacteria * Urine culture on 02/07/2023 positive for E coli ESBL. Rocephin discontinued and ertapenem started. * trend urine output * Urine culture grew E coli ESBL continue ertapenem * tailor antibiotics to culture results * Appears to have been on Macrobid outpatient which has failed at this point (2) Sepsis: Qualifiers: Sepsis type: sepsis due to unspecified organism Sepsis acute organ dysfunction status: without acute organ dysfunction Qualified Code(s): A41.9 - Sepsis, unspecified organism Code(s): A41.9 - Sepsis, unspecified organism Status: Resolved Assessment and Plan: * Meets SIRS criteria with leukocytosis, tachycardia, tachypnea, and source of infection * Source of infection UTI * Blood cultures positive Staph epi and Staph hominis in 1 bottle and Staph epi and Gram-positive cocci and another. * IV fluids given in ED * Urine culture positive for E coli ESBL * Ertapenem and vanco continued * WBC within normal limits * Continue to trend labs and vital signs * Stable (3) Bacteremia: Code(s): R78.81 - Bacteremia Status: Acute Assessment and Plan: * Blood cultures positive Staph epi and Staph hominis in 1 bottle and Staph epi and Gram-positive cocci and another. * Vanco and ertapenem on board * 02/17 Repeat cultures with no growth to * Continue to trend labs (4) Generalized weakness: Code(s): R53.1 - Weakness Status: Acute Assessment and Plan: * Most like related to the UTI * PT/OT consulted * Fall precautions (5) Chronic lower back pain: Qualifiers: Back pain laterality: unspecified Sciatica presence: without sciatica Qualified Code(s): M54.50 - Low back pain, unspecified; G89.29 - Other chronic pain Code(s): M54.50 - Low back pain, unspecified; G89.29 - Other chronic pain Status: Acute Assessment and Plan: * Tylenol p.r.n. * Trend pain * Add [place] if indicated (6) Restless leg syndrome: Code(s): G25.81 - Restless legs syndrome Status: Acute Assessment and Plan: * Continue pregabalin * Stable (7) Peripheral neuropathy: Qualifiers: Peripheral neuropathy type: polyneuropathy, unspecified Qualified Code(s): G62.9 - Polyneuropathy, unspecified Code(s): G62.9 - Polyneuropathy, unspecified Status: Acute Assessment and Plan: * Continue on pregabalin * Stable (8) Depression with anxiety: Code(s): F41.8 - Other specified anxiety disorders Status: Acute Assessment and Plan: * Continue home topiramate, olanzapine, mirtazapine Subjective Date/time seen: 02/19/23 16:01 Interval history: Patient feeling well today. Patient will likely need IV antibiotics at discharge. Pending blood cul
--- NOTE | 2023-02-19 16:01 | PM.IMPN ---
Progress Note: A&P Assessment and Plan (1) Urinary tract infection: Qualifiers: Hematuria presence: without hematuria Urinary tract infection type: site unspecified Qualified Code(s): N39.0 - Urinary tract infection, site not specified Code(s): N39.0 - Urinary tract infection, site not specified Status: Acute Assessment and Plan: UA peers infectious with positive nitrates, 2+ leukocyte esterase, wbc's 51-100%, 4+ bacteria Urine culture on 02/07/2023 positive for E coli ESBL. Rocephin discontinued and ertapenem started. trend urine output Urine culture grew E coli ESBL continue ertapenem tailor antibiotics to culture results Appears to have been on [facility] outpatient which has failed at this point (2) Sepsis: Qualifiers: Sepsis type: sepsis due to unspecified organism Sepsis acute organ dysfunction status: without acute organ dysfunction Qualified Code(s): A41.9 - Sepsis, unspecified organism Code(s): A41.9 - Sepsis, unspecified organism Status: Resolved Assessment and Plan: Meets SIRS criteria with leukocytosis, tachycardia, tachypnea, and source of infection Source of infection UTI Blood cultures positive Staph epi and Staph hominis in 1 bottle and Staph epi and Gram-positive cocci and another. IV fluids given in ED Urine culture positive for E coli ESBL Ertapenem and vanco continued WBC within normal limits Continue to trend labs and vital signs Stable (3) Bacteremia: Code(s): R78.81 - Bacteremia Status: Acute Assessment and Plan: Blood cultures positive Staph epi and Staph hominis in 1 bottle and Staph epi and Gram-positive cocci and another. Vanco and ertapenem on board 02/17 Repeat cultures with no growth to Continue to trend labs (4) Generalized weakness: Code(s): R53.1 - Weakness Status: Acute Assessment and Plan: Most like related to the UTI PT/OT consulted Fall precautions (5) Chronic lower back pain: Qualifiers: Back pain laterality: unspecified Sciatica presence: without sciatica Qualified Code(s): M54.50 - Low back pain, unspecified; G89.29 - Other chronic pain Code(s): M54.50 - Low back pain, unspecified; G89.29 - Other chronic pain Status: Acute Assessment and Plan: Tylenol p.r.n. Trend pain Add [place] if indicated (6) Restless leg syndrome: Code(s): G25.81 - Restless legs syndrome Status: Acute Assessment and Plan: Continue pregabalin Stable (7) Peripheral neuropathy: Qualifiers: Peripheral neuropathy type: polyneuropathy, unspecified Qualified Code(s): G62.9 - Polyneuropathy, unspecified Code(s): G62.9 - Polyneuropathy, unspecified Status: Acute Assessment and Plan: Continue on pregabalin Stable (8) Depression with anxiety: Code(s): F41.8 - Other specified anxiety disorders Status: Acute Assessment and Plan: Continue home topiramate, olanzapine, mirtazapine Subjective Date/time seen: 02/19/23 16:01 Interval history: Patient feeling well today. Patient will likely need IV antibiotics at discharge. Pending blood culture results will need either a midline or PICC line. Patient's redraw blood cultures have remained negative after 72 hours. She denies any body aches, chills, fever, lightheadedness, dizziness, dysuria, chest pain and shortness of breath. Hopeful discharge tomorrow. Exam Narrative: GENERAL: Comfortable, no acute distress HENMT: moist mucous membranes EYES: EOM intact b/l NECK: no lymphadenopathy RESPIRATORY: clear to auscultation CARDIO: RRR GI: soft, nontender, bowel sounds present SKIN: no rashes EXTREMITIES: no edema, redness or tenderness Objective Data Vital Signs Vital Signs: Vital Signs - 24 hr 02/18
[2023-02-19 21:01] VITALS: BP 132/88; PULSE 123; RESP 14; TEMP 36.4; O2SAT 94
[2023-02-19] MEDS: MIRTAZAPINE 15 MG TABLET PO (21:39)
[2023-02-19] MEDS: OLANZapine 5 MG TABLET 10 MG PO (21:39)
[2023-02-20 06:00] VITALS: BP 91/72; PULSE 113; RESP 16; TEMP 36.2; O2SAT 97
[2023-02-20 07:05] LABS: Basophils Absolute Auto 0.1 K/mm3 (0.0-0.1); Basophils Percent Auto 0.6 % (0.2-1.2); Eosinophils Absolute Auto 0.2 K/mm3 (0-0.3); Eosinophils Percent Auto 2.3 % (0-4.4); Hematocrit 38.3 % (37.0-47.0); Hemoglobin 11.8 g/dL (12.0-15.0); Immature Granulocyte Absolute 0.09 K/mm3 (0.00-0.031); Immature Granulocyte Percent A 0.9 % (0-0.5); Lymphocytes Absolute Auto 1.65 K/mm3 (0.9-3.2); Lymphocytes Percent Auto 16.3 % (18.3-44.2); Mean Corpuscular HGB Conc 30.8 g/dl (32-36); Mean Corpuscular Volume 84.5 fl (80-100); Mean Platelet Volume 11.7 fl (7.4-10.4); Monocytes Absolute Auto 0.7 K/mm3 (0.1-0.6); Monocytes Percent Auto 7.1 % (2.6-8.5); Neutrophils Absolute Auto 7.4 K/mm3 (1.3-6.7); Neutrophils Percent Auto 72.8 % (45.5-73.1); Platelet Count Result 213 k/mm3 (150-375); Red Blood Count 4.53 M/mm3 (4.2-5.4); Red Cell Distribution Width 18.1 % (11.5-14.5); White Blood Count 10.1 K/mm3 (4.5-10.0)
[2023-02-20 07:16] LABS: Alanine Aminotransferase 23 U/L (6-35); Albumin Level 3.4 g/dL (3.5-5.1); Alkaline Phosphatase 96 U/L (38-126); Anion Gap 6 mmol/L (8-16); Aspartate Amino Transferase 29 U/L (14-36); Bilirubin,Total 0.2 mg/dL (0.2-1.3); Blood Urea Nitrogen 16 mg/dL (7-17); Calcium 8.7 mg/dL (8.4-10.2); Carbon Dioxide 25 mmol/L (22-30); Chloride 111 mmol/L (98-107); Estimated CRCL calculation 60 ml/min; Estimated Glomerular Filt Rate > 60; Glucose 135 mg/dL (65-110); Potassium 3.7 mmol/L (3.4-5.0); Sodium 142 mmol/L (137-145)
[2023-02-20 07:27] LABS: Vancomycin Trough 9.3 ug/mL (10.0-20.0)
[2023-02-20] MEDS: oxyBUTYnin CHLORIDE XL 5 MG TAB.ER.24 PO (08:37)
[2023-02-20] MEDS: ENOXAPARIN 40 MG/0.4 ML SYRINGE SUB-Q (08:37)
[2023-02-20] MEDS: PREGABALIN (*CRX) 75 MG CAPSULE 150 MG PO ×2 (08:37→12:41)
[2023-02-20] MEDS: ERTAPENEM 1 GM/NS 50 ML 1 GM/50 ML BAG IVPB (09:40)
--- NOTE | 2023-02-20 11:52 | PM.DS ---
DS: Admitting Diagnosis Discharge Date 02/20/23 Admitting Diagnosis UTI DS: Discharge Diagnosis Discharge Diagnosis (1) Urinary tract infection: Qualifiers: Hematuria presence: without hematuria Urinary tract infection type: site unspecified Qualified Code(s): N39.0 - Urinary tract infection, site not specified Code(s): N39.0 - Urinary tract infection, site not specified Status: Acute (2) Sepsis: Qualifiers: Sepsis type: sepsis due to unspecified organism Sepsis acute organ dysfunction status: without acute organ dysfunction Qualified Code(s): A41.9 - Sepsis, unspecified organism Code(s): A41.9 - Sepsis, unspecified organism Status: Resolved (3) Bacteremia: Code(s): R78.81 - Bacteremia Status: Acute (4) Generalized weakness: Code(s): R53.1 - Weakness Status: Acute (5) Chronic lower back pain: Qualifiers: Back pain laterality: unspecified Sciatica presence: without sciatica Qualified Code(s): M54.50 - Low back pain, unspecified; G89.29 - Other chronic pain Code(s): M54.50 - Low back pain, unspecified; G89.29 - Other chronic pain Status: Acute (6) Restless leg syndrome: Code(s): G25.81 - Restless legs syndrome Status: Acute (7) Peripheral neuropathy: Qualifiers: Peripheral neuropathy type: polyneuropathy, unspecified Qualified Code(s): G62.9 - Polyneuropathy, unspecified Code(s): G62.9 - Polyneuropathy, unspecified Status: Acute (8) Depression with anxiety: Code(s): F41.8 - Other specified anxiety disorders Status: Acute DS: Summary Hospital Course Hospital Course: 62-year-old female past medical history of lung cancer, diabetes, peripheral neuropathy, restless leg syndrome and chronic lower back pain that presents to the ED due to generalized weakness, fatigue, poor appetite. She was recently treated in the hospital for UTI and sent home on Macrobid. Urine cultures at that time revealed E coli ESBL. Repeat UA positive for nitrates, 2+ LE, 51-100 wbc's and 4+ bacteria. Patient originally started on Rocephin. Blood cultures were drawn and in both bottles blood was positive for Staph epidermis and patient was started on vancomycin. Repeat blood cultures drawn and have remained negative to date. Urine culture positive for E coli ESBL. Patient was transition to ertapenem for total of 7 days. Vancomycin transition to linezolid to be completed for a total of 10 days from negative culture. Patient doing well and has no complaints at this time. Her labs and vital signs are stable and she is medically clear for discharge. Time Spent with Patient Time attestation: Total time spent providing and/or coordinating discharge services: Exam Narrative: GENERAL: Comfortable, no acute distress HENMT: moist mucous membranes EYES: EOM intact b/l NECK: no lymphadenopathy RESPIRATORY: clear to auscultation CARDIO: RRR GI: soft, nontender, bowel sounds present SKIN: no rashes EXTREMITIES: no edema, redness or tenderness DS: Data Data Completed and Pending Labs on day of discharge: Labs from last 24 hours 02/20/23 02/20/23 11:05 06:48 WBC 10.1 H RBC 4.53 Hgb 11.8 L Hct 38.3 MCV 84.5 MCH 26.0 MCHC 30.8 L RDW 18.1 H Plt Count 213 MPV 11.7 H Immature Gran % (Auto) 0.9 H Neut % (Auto) 72.8 Lymph % (Auto) 16.3 L [place] % (Auto) 7.1 Eos % (Auto) 2.3 Baso % (Auto) 0.6 Lymph # (Auto) 1.65 [place] # (Auto) 0.7 H Eos # (Auto) 0.2 Baso # (Auto) 0.1 Abs Immat Gran (auto) 0.09 H Absolute Neuts (auto) 7.4 H Absolute Nucleated RBC 0.0 Nucleated RBC % 0.0 Sodium 142 Potassium 3.7 Chloride 111 H Carbon Dioxide 25 Anion Gap 6 L BUN 16 Creatinine 0.90 Estim Creat Clear Calc 60 Estimated GFR > 60 Glucose 135 H Calcium 8.7 Total Bilirubin 0.2 AST 29 ALT 23 Alkaline Phosphatase 96 Total Pr
[2023-02-20 11:54] LABS: SARS-CoV-2 RNA PCR Negative (Negative)
[2023-02-20] MEDS: LINEZOLID 600 MG TABLET PO (12:41)
[2023-02-20] MEDS: SALINE LOCK FLUSH 10 ML IV PUSH (12:42)
== END 2023-02-20 13:34 | DRG 872 ==
LOC: ANHED 22:17 → ANH3MEDSUR 22:31
PROVIDERS: Nurse Practitioner; Admitting Provider Internal Medicine; Emergency Provider Emergency Medicine; PCP Internal Medicine; Visit Provider Internal Medicine Critical Care Medicine
DX: A41.9 Sepsis, unspecified organism (principal); N39.0 Urinary tract infection, site not specified; N17.9 Acute kidney failure, unspecified; B96.20 Unspecified Escherichia coli [E. coli] as the cause of diseases classified elsewhere; B95.7 Other staphylococcus as the cause of diseases classified elsewhere; Z20.822 Contact with and (suspected) exposure to COVID-19; M54.50 Low back pain, unspecified; G89.29 Other chronic pain; G25.81 Restless legs syndrome; F41.8 Other specified anxiety disorders; E11.42 Type 2 diabetes mellitus with diabetic polyneuropathy; F17.210 Nicotine dependence, cigarettes, uncomplicated; Z85.118 Personal history of other malignant neoplasm of bronchus and lung; Z86.718 Personal history of other venous thrombosis and embolism; Z90.49 Acquired absence of other specified parts of digestive tract; Z90.710 Acquired absence of both cervix and uterus; Z59.00 Homelessness unspecified
CPT/HCPCS: 36415; 36569; 71045; 80053; 80202; 81001; 82948; 83605; 83690; 83735; 84145; 84484; 85025; 85027; 85055; 85610; 85730; 87040; 87077; 87086; 87088; 87186; 87635; 87636; 87651; 93005; 96361; 96365; 96366; 96372; 96375; 97110; 97161; 97165; 97530; 99285; A9270; G0378; J0696; J1335; J1650; J1885; J3370; J7030